=== PATIENT | female | born 1945 | race Caucasian/White ===

== ENCOUNTER 2017-06-05 09:21 | Inpatient (IN) | payer MEDICARE, BC ==
[2017-06-05] VITALS (8 sets, daily range): BP systolic 143–174; BP diastolic 69–76; PULSE 98–121; RESP 18–24; TEMP 98.6–101.8; O2SAT 91–99
[~2017-06-05] VITALS: Ht 162.6 cm; Wt 90.6 kg
[~2017-06-05 09:21] MED LIST: ASPI-516 CHEW; CENTTAB PO; CIPR-9 PO; CLAR5TAB PO; DEXA4TAB PO; LEVE500 PO; OXYB5TAB8 PO; PERC5TAB12 PO; SYMB80AE INH; ZOLO50TA PO
--- NOTE | 2017-06-05 09:44 | PD ---
HPI Chief Complaint: Cold / Flu Symptoms Time Seen by Provider: 09:31 Travel History International Travel<30 days: No Contact w/Intl Traveler<30days: No Traveled to known affect area: No History of Present Illness HPI The patient is a 71-year-old female who presents to the emergency department via EMS for fever and altered mental status. According to EMS the patient's has been sick at home for last 5 days, the patient developed symptoms 2-3 days ago with fever. The patient apparently was trying to get up off of the toilet earlier today and had a near syncopal episode. Upon arrival the patient is a somewhat poor historian, is able to answer questions, but is only alert and oriented 2 out of 5. The patient was noted to be tachycardic and febrile upon presentation. The patient denies any headache, chest pain, shortness breath, cough, nausea, vomiting, diarrhea, abdominal pain, or dysuria. However, nursing staff stated the patient was coughing upon arrival. PFSH Past Medical History Asthma: No Autoimmune Disease: No Blood Disorders: No Depression: Yes Cancer: Yes (R LUNG ) Cardiovascular Problems: No COPD: No Cerebrovascular Accident: Yes (TIA 09/16- LEFT SIDED WEAKNESS) Diabetes: No Diminished Hearing: No Endocrine: No GERD: Yes Genitourinary: No Hepatitis: No Immune Disorder: No Implanted Vascular Access Dvce: Yes Musculoskeletal: Yes Neurologic: Yes (BRAIN ANEURYSM) Psychiatric: Yes (DENIES) Reproductive: No Respiratory: Yes (SMOKER X 50 YEARS) Immunizations Current: Yes Radiation Therapy: Yes Seizures: Yes Sleep Apnea: No Thyroid Disease: No Tetanus Vaccination: Unknown Influenza Vaccination: No PNEUMOCCOCAL Vaccine (Year): 2 ?: Not Menopausal: Yes : 2 Para: 3 Past Surgical History Body Medical Devices: 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 Eye Surgery: Yes (BILAT CATARACT REMOVALS WITH LENS IMPLANTS) Neurologic Surgery: Yes (BRAIN BLEED (SHUNT)) Other Surgery: Yes (biopsy lung) Social History Alcohol Use: No Tobacco Use: No (QUIT,BUT SMOKED FOR 50 YEARS) Substance Use: No Allergies-Medications (Allergen,Severity, Reaction): Coded Allergies: Sulfa (Sulfonamide Antibiotics) (Verified Allergy, Severe, rash, 06/05/17) adhesive (Verified Allergy, Severe, rash, 06/05/17) cephalexin (Verified Allergy, Severe, rash, 06/05/17) diclofenac (Verified Allergy, Severe, rash, 06/05/17) erythromycin base (Verified Allergy, Severe, rash, 06/05/17) ibuprofen (Verified Allergy, Severe, rash, 06/05/17) naproxen (Verified Allergy, Severe, rash, 06/05/17) neomycin (Verified Allergy, Severe, rash, 06/05/17) rofecoxib (Verified Allergy, Severe, rash, 06/05/17) Reported Meds & Prescriptions Reported Meds & Active Scripts Active Reported Centrum (Multiple Vitamins W/ Minerals) 1 Chew 1 Tab PO DAILY Benadryl Allergy (Diphenhydramine HCl) 25 Mg Cap 25 Tab PO BID Zoloft (Sertraline HCl) 50 Mg Tab 50 Mg PO DAILY Ditropan (Oxybutynin Chloride) 5 Mg Tab 5 Mg PO Q12HR Keppra (Levetiracetam) 500 Mg Tab 500 Mg PO BID Symbicort Inh (Budesonide/Formoterol Fumarate) 80-4.5 Mcg/Act Aero 1 Puff INH Q12HR Aspirin 81 Mg Chew 81 Mg CHEW DAILY Review of Systems Except as stated in HPI: all other systems reviewed are Neg General / Constitutional: Positive: Fever HENT: No: Lightheadedness Cardiovascular: No: Chest Pain or Discomfort Respiratory: Positive: Cough (patient denies, however, nursing staff states the patient was coughing), No: Shortness of Breath Gastrointestinal: No: Nausea, Vomiting, Diarrhea, Abdominal Pain Genitourinary: No: Dysuria Neurologic: Positive: Change in Mentation (patient is normally alert and oriented according to EMS) Physical Exam Narrative GENERAL: Awake, somewhat lethargic 71-year-old female who appears her stated age. SKIN: Focused skin assessment warm/dry. HEAD: Atraumatic. Normocephalic. EYES: Pupils equal and round. No injection or drainage. ENT: No nasal bleeding or discharge. Slightly dry mucous membranes. NECK: Trachea midline. No JVD. CARDIOVASCULAR: Regular, tachycardic with a heart rate of 120. RESPIRATORY: No accessory muscle use. Late wheeze in the lower lobes bilaterally with rhonchi in the right base. GASTROINTESTINAL: Abdomen soft, obese, no tenderness. No guarding or rigidity. Back: Well-healed midline lumbar scar. No sacral decubitus ulcer noted. MUSCULOSKELETAL: No obvious deformities. No clubbing. No cyanosis. No edema. NEUROLOGICAL: Awake, lethargic. Oriented to out of 5. Follows commands. PSYCHIATRIC: Appropriate mood and affect; insight and judgment normal. Data Data Last Documented VS Vital Signs Date Time Temp Pulse Resp B/P (MAP) Pulse Ox O2 Delivery O2 Flow Rate FiO2 06/05/17 11:04 99.2 112 20 152/72 (98) 98 Nasal Cannula 2.00 Orders Orders Sepsis Workup Initiated (06/05/17 ) Electrocardiogram (06/05/17 09:37) Complete Blood Count With Diff (06/05/17 09:37) Comprehensive Metabolic Panel (06/05/17 09:37) Lactic Acid Sepsis Protocol (06/05/17 09:37) Magnesium (Mg) (06/05/17 09:37) Ckmb (Isoenzyme) Profile (06/05/17 09:37) Troponin I (06/05/17 09:37) Urinalysis - C+S If Indicated (06/05/17 09:37) Influenzae A/B Antigen (06/05/17 09:37) Blood Culture (06/05/17 09:37) Chest, Single Ap (06/05/17 09:37) Blood Gas Venous (Vbg) (06/05/17 09:37) Blood Glucose (06/05/17 09:37) Ecg Monitoring (06/05/17 09:37) Iv Access Insert/Monitor (06/05/17 09:37) Oximetry (06/05/17 09:37) Oxygen Administration (06/05/17 09:37) Acetaminophen (Tylenol) (06/05/17 09:45) Sodium Chlor 0.9% 1000 Ml Inj (Ns 1000 M (06/05/17 09:45) Urine Culture (06/05/17 09:45) Ciprofloxacin 400 Mg Premix (Cipro 400 M (06/05/17 11:00) Sodium Chlor 0.9% 1000 Ml Inj (Ns 1000 M (06/05/17 11:00) Admit Order (Ed Use Only) (06/05/17 11:44) Labs Laboratory Tests Test 06/05/17 09:45 06/05/17 10:14 White Blood Count 8.7 TH/MM3 Red Blood Count 4.36 MIL/MM3 Hemoglobin 11.4 GM/DL Hematocrit 35.4 % Mean Corpuscular Volume 81.2 FL Mean Corpuscular Hemoglobin 26.2 PG Mean Corpuscular Hemoglobin Concent 32.3 % Red Cell Distribution Width 16.5 % Platelet Count 265 TH/MM3 Mean Platelet Volume 8.1 FL Neutrophils (%) (Auto) 81.5 % Lymphocytes (%) (Auto) 5.7 % Monocytes (%) (Auto) 9.0 % Eosinophils (%) (Auto) 2.8 % Basophils (%) (Auto) 1.0 % Neutrophils # (Auto) 7.1 TH/MM3 Lymphocytes # (Auto) 0.5 TH/MM3 Monocytes # (Auto) 0.8 TH/MM3 Eosinophils # (Auto) 0.2 TH/MM3 Basophils # (Auto) 0.1 TH/MM3 CBC Comment DIFF FINAL Differential Comment Urine Color YELLOW Urine Turbidity HAZY Urine pH 7.5 Urine Specific [place] 1.017 Urine Protein 30 mg/dL Urine Glucose (UA) NEG mg/dL Urine Ketones 10 mg/dL Urine Occult Blood TRACE Urine Nitrite POS Urine Bilirubin NEG Urine Urobilinogen LESS THAN 2.0 MG/DL Urine Leukocyte Esterase MOD Urine RBC 6 /hpf Urine WBC 19 /hpf Urine Transitional Epithelial Cells <1 /hpf Urine Bacteria MANY /hpf Urine Mucus FEW /lpf Microscopic Urinalysis Comment CATH-CULTURE IND Blood Urea Nitrogen 13 MG/DL Creatinine 0.89 MG/DL Random Glucose 117 MG/DL Total Protein 8.1 GM/DL Albumin 3.6 GM/DL Calcium Level 7.9 MG/DL Magnesium Level 2.0 MG/DL Alkaline Phosphatase 112 U/L Aspartate Amino Transf (AST/SGOT) 23 U/L Alanine Aminotransferase (ALT/SGPT) 25 U/L Total Bilirubin 0.2 MG/DL Sodium Level 138 MEQ/L Potassium Level 4.0 MEQ/L Chloride Level 104 MEQ/L Carbon Dioxide Level 26.1 MEQ/L Anion Gap 8 MEQ/L Estimat Glomerular Filtration Rate 62 ML/MIN Lactic Acid Level 1.2 mmol/L Total Creatine Kinase 66 U/L Troponin I LESS THAN 0.02 NG/ML Blood Gas Puncture Site LAC Blood Gas Patient Temperature 98.6 Venous Blood pH 7.40 Venous Blood Partial Pressure CO2 41 mmHg Venous Blood Partial Pressure O2 50 mmHg Venous Blood HCO3 25 mmol/L Venous Blood Oxygen Saturation 83 % Venous Blood Oxygen Content 12.6 Vol % Venous Blood Base Excess 0.6 mmol/L Oxygen Delivery Device NASAL CANNULA Blood Gas Liter Flow 3 L/M MDM Medical Decision Making Medical Screen Exam Complete: Yes Emergency Medical Condition: Yes Medical Record Reviewed: Yes Interpretation(s) EKG reveals sinus tachycardia with a heart rate of 120. RSR prime in V1. Last Impressions Chest X-Ray 06/05/17 0937 Signed Impressions: Service Date/Time: Monday, June 05, 2017 09:55 - CONCLUSION: Negative for acute process. Brandt Carrera MD FACR Laboratory Tests Test 06/05/17 09:45 06/05/17 10:14 White Blood Count 8.7 TH/MM3 Red Blood Count 4.36 MIL/MM3 Hemoglobin 11.4 GM/DL Hematocrit 35.4 % Mean Corpuscular Volume 81.2 FL Mean Corpuscular Hemoglobin 26.2 PG Mean Corpuscular Hemoglobin Concent 32.3 % Red Cell Distribution Width 16.5 % Platelet Count 265 TH/MM3 Mean Platelet Volume 8.1 FL Neutrophils (%) (Auto) 81.5 % Lymphocytes (%) (Auto) 5.7 % Monocytes (%) (Auto) 9.0 % Eosinophils (%) (Auto) 2.8 % Basophils (%) (Auto) 1.0 % Neutrophils # (Auto) 7.1 TH/MM3 Lymphocytes # (Auto) 0.5 TH/MM3 Monocytes # (Auto) 0.8 TH/MM3 Eosinophils # (Auto) 0.2 TH/MM3 Basophils # (Auto) 0.1 TH/MM3 CBC Comment DIFF FINAL Differential Comment Urine Color YELLOW Urine Turbidity HAZY Urine pH 7.5 Urine Specific [place] 1.017 Urine Protein 30 mg/dL Urine Glucose (UA) NEG mg/dL Urine Ketones 10 mg/dL Urine Occult Blood TRACE Urine Nitrite POS Urine Bilirubin NEG Urine Urobilinogen LESS THAN 2.0 MG/DL Urine Leukocyte Esterase MOD Urine RBC 6 /hpf Urine WBC 19 /hpf Urine Transitional Epithelial Cells <1 /hpf Urine Bacteria MANY /hpf Urine Mucus FEW /lpf Microscopic Urinalysis Comment CATH-CULTURE IND Blood Urea Nitrogen 13 MG/DL Creatinine 0.89 MG/DL Random Glucose 117 MG/DL Total Protein 8.1 GM/DL Albumin 3.6 GM/DL Calcium Level 7.9 MG/DL Magnesium Level 2.0 MG/DL Alkaline Phosphatase 112 U/L Aspartate Amino Transf (AST/SGOT) 23 U/L Alanine Aminotransferase (ALT/SGPT) 25 U/L Total Bilirubin 0.2 MG/DL Sodium Level 138 MEQ/L Potassium Level 4.0 MEQ/L Chloride Level 104 MEQ/L Carbon Dioxide Level 26.1 MEQ/L Anion Gap 8 MEQ/L Estimat Glomerular Filtration Rate 62 ML/MIN Lactic Acid Level 1.2 mmol/L Total Creatine Kinase 66 U/L Troponin I LESS THAN 0.02 NG/ML Blood Gas Puncture Site LAC Blood Gas Patient Temperature 98.6 Venous Blood pH 7.40 Venous Blood Partial Pressure CO2 41 mmHg Venous Blood Partial Pressure O2 50 mmHg Venous Blood HCO3 25 mmol/L Venous Blood Oxygen Saturation 83 % Venous Blood Oxygen Content 12.6 Vol % Venous Blood Base Excess 0.6 mmol/L Oxygen Delivery Device NASAL CANNULA Blood Gas Liter Flow 3 L/M Differential Diagnosis Differential diagnosis includes pneumonia, influenza, sepsis, UTI, pyelonephritis, viral syndrome, dehydration, electrolyte abnormality. Narrative Course IV was established, labs are drawn and sent, and the patient was placed on cardiac telemetry monitoring and continuous pulse oximetry monitoring. EKG was ordered and interpreted. Catheter UA was sent to lab. Lactic acid and blood culture were sent to lab. The patient was administered 1 L of IV fluids and placed on oxygen via nasal cannula for initial O2 sat of 90% on room air. Chest x-rays unremarkable. White count is normal. UA is positive for nitrites , leukocyte esterase, and WBCs consistent with UTI and secondary sepsis with tachycardia and fever. The patient is allergic to cephalexin and sulfa, therefore, was administered Cipro intravenously. I had a discussion with the son and at bedside, the patient is normally alert and oriented and able to get around the house. However, the was unable to get the patient out of the bed and into the bathroom earlier today secondary to her weakness and confusion. The patient has delirium secondary to sepsis and underlying UTI/ pyelonephritis. Therefore, the patient will be admitted to the medical service. Sepsis Criteria SIRS Criteria (2 or more): Temp > 100.9 or < 96.8, Heart rate over 90 Sepsis Criteria (SIRS+source): Infect source susp/known Criteria Outcome: Meets sepsis criteria Physician Communication Physician Communication [facility] were paged for admission. I discussed the patient with Dr. Arellano who agrees with admission. Diagnosis Primary Impression: Sepsis Qualified Codes: A41.9 - Sepsis, unspecified organism Additional Impressions: Pyelonephritis Delirium Admitting Information Admitting Physician Requests: Admit Condition: Stable Keven Milan MD Jun 05, 2017 09:44
[2017-06-05] MEDS ORDERED: ACETAMINOPHEN 325 MG TAB PO ONE (09:45)
[2017-06-05] MEDS ORDERED: SODIUM CHLOR 0.9% 1000 ML INJ 1,000 ML IV ONE ×2 (09:45→11:00)
--- NOTE | 2017-06-05 10:15 | RADRPT ---
EXAM DATE/TIME: 06/05/2017 09:55 [facility] COMPARISON: CHEST SINGLE AP, May 11, 2016, 1:23. INDICATIONS : Fever MEDICAL HISTORY : aneurysm 8 years ago, spot on her lung. history given by son SURGICAL HISTORY : None. ENCOUNTER: Initial ACUITY: 2 days PAIN SCORE: Non-responsive. LOCATION: Bilateral chest FINDINGS: Lungs are clear. The heart and pulmonary vascularity are normal.. CERTIFIED PROSTHETIST VICE PRESIDENT shunt is seen on the left. CONCLUSION: Negative for acute process. Brandt Carrera MD FACR on June 05, 2017 at 10:06 Board Certified Radiologist. This report was verified electronically.
[2017-06-05] MEDS ORDERED: BENA25CA4 PO (10:16)
[2017-06-05] MEDS ORDERED: CENTCHW4 PO (10:16)
[2017-06-05 10:39] LABS: BACTERIA, URINE MANY /hpf; BILIRUBIN, URINE NEG (NEG); BLOOD, URINE TRACE (NEG); GLUCOSE,URINE NEG (NEG); KETONE, URINE 10 mg/dL (NEG); MUCUS URINE FEW /lpf (OCC); NITRITE,URINE POS (NEG); PH, URINE 7.5 (5.0-8.5); TRANSITIONAL EPI CELLS, URINE <1 /hpf; URINE COLOR YELLOW (YELLW/STRAW); URINE LEUKOCYTE ESTERASE MOD (NEG)
[2017-06-05 10:41] LABS: AUTOMATED NEUTROPHIL # 7.1 TH/MM3 (1.8-7.7); BASOPHIL # 0.1 TH/MM3 (0-0.2); EOSINOPHIL # 0.2 TH/MM3 (0-0.4); EOSINOPHIL % 2.8 % (0.0-4.0); HEMATOCRIT 35.4 % (35.0-46.0); HEMOGLOBIN 11.4 GM/DL (11.6-15.3); LYMPH % 5.7 % (9.0-44.0); LYMPHOCYTE # 0.5 TH/MM3 (1.0-4.8); MEAN CELL VOLUME 81.2 FL (80.0-100.0); MEAN CORPUSCULAR HEMOGLOBIN 26.2 PG (27.0-34.0); MEAN CORPUSCULAR HGB CONC 32.3 % (32.0-36.0); MEAN PLATELET VOLUME 8.1 FL (7.0-11.0); MONOCYTE # 0.8 TH/MM3 (0-0.9); NEUT % 81.5 % (16.0-70.0); PLATELET COUNT 265 TH/MM3 (150-450); RED BLOOD COUNT 4.36 MIL/MM3 (4.00-5.30); RED CELL DISTRIBUTION WIDTH 16.5 % (11.6-17.2); WHITE BLOOD COUNT 8.7 TH/MM3 (4.0-11.0)
[2017-06-05 10:57] LABS: ALBUMIN 3.6 GM/DL (3.4-5.0); ALT (GPT) 25 U/L (10-53); AST (GOT) 23 U/L (15-37); BICARBONATE 26.1 MEQ/L (21.0-32.0); BLOOD UREA NITROGEN 13 MG/DL (7-18); CALCIUM 7.9 MG/DL (8.5-10.1); CHLORIDE 104 MEQ/L (98-107); CREATININE 0.89 MG/DL (0.50-1.00); GLOMERULAR FILTRATION RATE 62 ML/MIN (>89); GLUCOSE,RANDOM 117 MG/DL (74-106); SODIUM (NA) 138 MEQ/L (136-145)
[2017-06-05] MEDS ORDERED: CIPROFLOXACIN 400 MG PREMIX 200 ML IV ONE (11:00)
[2017-06-05 11:02] LABS: ALKALINE PHOSPHATASE 112 U/L (45-117); TOTAL BILIRUBIN ADULT 0.2 MG/DL (0.2-1.0); TOTAL PROTEIN 8.1 GM/DL (6.4-8.2); TROPONIN I LESS THAN 0.02 NG/ML (0.02-0.05)
--- NOTE | 2017-06-05 11:51 | EKG ---
Date Performed: 06/05/2017 Time Performed: 09:41:10 PTAGE: 71 years EKG: SINUS TACHYCARDIA POSSIBLE RIGHT VENTRICULAR CONDUCTION DELAY ABNORMAL RHYTHM ECG PREVIOUS TRACING : 05/11/2016 01.22 Since the prior tracing, there has been no significant alvarez DOCTOR: Carolin Zimmer Interpretating Date/Time 06/05/2017 11:50:42
[2017-06-05] MEDS: RESP: ALBUTEROL 2.5 MG/IPRATROPIUM 0.5 MG NEB (SCH) NEB ×2 (16:45→21:28)
[2017-06-05] MEDS ORDERED: RESP: ALBUTEROL 2.5 MG/IPRATROPIUM 0.5 MG NEB (PRN) NEB (16:45)
--- NOTE | 2017-06-05 16:58 | HHI.HP ---
[facility] Chandrakant Huang MD Admission Diagnosis sepsis, pyelonephritis, delirium Diagnoses: Chief Complaint: fever Travel History International Travel<30 Days: No Contact w/Intl Traveler <30 Da: No Traveled to Known Affected Are: No Sepsis Criteria SIRS Criteria (2 or more): Temp > 100.9 or < 96.8, Heart rate over 90, RR > 20 or PaCO2 < 32 Sepsis Criteria (SIRS+source): Infect source susp/known Criteria Outcome: Meets sepsis criteria History of Present Illness 71-year-old female with history of intracranial hemorrhage secondary to brain aneurysm sometime in and per son at bedside patient is basically a total assist with every ADLs, daily meals and bathing etc, Primary press operator automatic is her who is not at bedside patent. Baseline she ambulates with 2 person assist. Her who is the primary caregiver scheduled check her diarrhea per and change it regularly. She was brought in by her as patient this morning and was very lethargic Patient here was it had a temperature of 102.8 tachycardic and patient was admitted for further evaluation and management. Patient is now more awake and alert A urinalysis was abstained obtained and showed pyuria. Chest x-ray negative. Flu antigen test negative Review of Systems ROS Limitations: Poor Historian Eyes: DENIES: Blurred vision, Diplopia, Eye inflammation, Eye pain, Vision loss , Photosensitivity, Double Vision Hematologic/lymphatic: DENIES: Bruising, Lymphadenopathy Immunologic/allergic: DENIES: Eczema, Urticaria Neurologic: COMPLAINS OF: Seizures Past Family Social History Past Medical History Status post CVA intracranial hemorrhage secondary to brain aneurysm in 2011 status post clipping/cranioplasty Seizure disorder COPD Occasional urinary incontinence History of non-small cell carcinoma in 2014 status post radiation therapy Past Surgical History Brain aneurysm clipping in 2011 Reported Medications Aspirin Keppra Zoloft Symbicort Ditropan Multivitamin Allergies: Coded Allergies: Sulfa (Sulfonamide Antibiotics) (Verified Allergy, Severe, rash, 06/05/17) adhesive (Verified Allergy, Severe, rash, 06/05/17) cephalexin (Verified Allergy, Severe, rash, 06/05/17) diclofenac (Verified Allergy, Severe, rash, 06/05/17) erythromycin base (Verified Allergy, Severe, rash, 06/05/17) ibuprofen (Verified Allergy, Severe, rash, 06/05/17) naproxen (Verified Allergy, Severe, rash, 06/05/17) neomycin (Verified Allergy, Severe, rash, 06/05/17) rofecoxib (Verified Allergy, Severe, rash, 06/05/17) Family History Noncontributory Social History Patient was a heavy smoker quit 8 years ago No history of alcohol or substance abuse Physical Exam Vital Signs Vital Signs Date Time Temp Pulse Resp B/P (MAP) Pulse Ox O2 Delivery O2 Flow Rate FiO2 06/05/17 15:44 98.8 98 18 149/69 (95) 99 06/05/17 12:35 98.6 106 18 153/76 (101) 98 Nasal Cannula 2.00 06/05/17 11:04 99.2 112 20 152/72 (98) 98 Nasal Cannula 2.00 06/05/17 10:06 Nasal Cannula 2.00 06/05/17 09:40 20 98 Nasal Cannula 2.00 06/05/17 09:27 Room Air 06/05/17 09:24 101.8 121 24 143/75 (97) 91 Physical Exam GENERAL: Awake alert oriented to person and place and time, voice slightly hoarse SKIN: No rashes, ecchymoses or lesions. Cool and dry. HEAD: Atraumatic. Normocephalic. No temporal or scalp tenderness. EYES: Pupils equal round and reactive. Extraocular motions intact. No scleral icterus. No injection or drainage. ENT: Nose without bleeding, . Throat without erythema, tonsillar hypertrophy or exudate. Uvula midline. Airway patent. NECK: Trachea midline. No JVD or lymphadenopathy. Supple, nontender, no meningeal signs. CARDIOVASCULAR: Regular rate and rhythm without murmurs, gallops, or rubs. RESPIRATORY: With few expiratory wheezes occasional rhonchi no Rales GASTROINTESTINAL: Abdomen soft, non-tender, nondistended. No guarding. MUSCULOSKELETAL: Extremities without clubbing, cyanosis, or edema. No joint tenderness, effusion, or edema noted. No calf tenderness. Negative Homans sign bilaterally. NEUROLOGICAL: Awake and alert. Cranial nerves II through XII intact. Motor and sensory grossly within normal limits. Five out of 5 muscle strength -moves all extremities equally grossly Laboratory Laboratory Tests Test 06/05/17 09:45 06/05/17 10:14 White Blood Count 8.7 Red Blood Count 4.36 Hemoglobin 11.4 Hematocrit 35.4 Mean Corpuscular Volume 81.2 Mean Corpuscular Hemoglobin 26.2 Mean Corpuscular Hemoglobin Concent 32.3 Red Cell Distribution Width 16.5 Platelet Count 265 Mean Platelet Volume 8.1 Neutrophils (%) (Auto) 81.5 Lymphocytes (%) (Auto) 5.7 Monocytes (%) (Auto) 9.0 Eosinophils (%) (Auto) 2.8 Basophils (%) (Auto) 1.0 Neutrophils # (Auto) 7.1 Lymphocytes # (Auto) 0.5 Monocytes # (Auto) 0.8 Eosinophils # (Auto) 0.2 Basophils # (Auto) 0.1 CBC Comment DIFF FINAL Differential Comment Urine Color YELLOW Urine Turbidity HAZY Urine pH 7.5 Urine Specific [place] 1.017 Urine Protein 30 Urine Glucose (UA) NEG Urine Ketones 10 Urine Occult Blood TRACE Urine Nitrite POS Urine Bilirubin NEG Urine Urobilinogen LESS THAN 2.0 Urine Leukocyte Esterase MOD Urine RBC 6 Urine WBC 19 Urine Transitional Epithelial Cells <1 Urine Bacteria MANY Urine Mucus FEW Microscopic Urinalysis Comment CATH-CULTURE IND Blood Urea Nitrogen 13 Creatinine 0.89 Random Glucose 117 Total Protein 8.1 Albumin 3.6 Calcium Level 7.9 Magnesium Level 2.0 Alkaline Phosphatase 112 Aspartate Amino Transf (AST/SGOT) 23 Alanine Aminotransferase (ALT/SGPT) 25 Total Bilirubin 0.2 Sodium Level 138 Potassium Level 4.0 Chloride Level 104 Carbon Dioxide Level 26.1 Anion Gap 8 Estimat Glomerular Filtration Rate 62 Lactic Acid Level 1.2 Total Creatine Kinase 66 Troponin I LESS THAN 0.02 Blood Gas Puncture Site LAC Blood Gas Patient Temperature 98.6 Venous Blood pH 7.40 Venous Blood Partial Pressure CO2 41 Venous Blood Partial Pressure O2 50 Venous Blood HCO3 25 Venous Blood Oxygen Saturation 83 Venous Blood Oxygen Content 12.6 Venous Blood Base Excess 0.6 Oxygen Delivery Device NASAL CANNULA Blood Gas Liter Flow 3 Date/Time Source Procedure Growth Status 06/05/17 09:45 Blood Peripheral Aerobic Blood Culture Pending Received 06/05/17 09:45 Blood Peripheral Anaerobic Blood Culture Pending Received 06/05/17 09:45 Nasal Aspirate Influenza Types A,B Antigen (DASHA) - Final NEGATIVE FOR FLU A AND B ANTIGEN.... Complete 06/05/17 09:45 Urine Catheterized Urine Urine Culture Pending Received Result Diagram: 06/05/1745 06/05/1745 Imaging Last Impressions Chest X-Ray 06/05/17936 Signed Impressions: Service Date/Time: Monday, June 05, 2017 09:55 - CONCLUSION: Negative for acute process. Brandt Carrera MD FACR Caprini VTE Risk Assessment Caprini VTE Risk Assessment: Mod/High Risk (score >= 2) Caprini Risk Assessment Model Point Value = 1 Point Value = 2 Point Value = 3 Point Value = 5 Age 41-60 Minor surgery BMI > 25 kg/m2 Swollen legs Varicose veins or History of unexplained or recurrent spontaneous Oral contraceptives or hormone replacement Sepsis (< 1 month) Serious lung disease, including pneumonia (< 1 month) Abnormal pulmonary function Acute myocardial infarction Congestive heart failure (< 1 month) History of inflammatory bowel disease Medical patient at bed rest Age 61-74 Arthroscopic surgery Major open surgery (> 45 min) Laparoscopic surgery (> 45 min) Malignancy Confined to bed (> 72 hours) Immobilizing plaster cast Central venous access Age >= 75 History of VTE Family history of VTE Factor V Leiden Prothrombin [id number] Lupus anticoagulant Anticardiolipin antibodies Elevated serum homocysteine Heparin-induced thrombocytopenia Other congenital or acquired thrombophilia Stroke (< 1 month) Elective arthroplasty Hip, pelvis, or leg fracture Acute spinal cord injury (< 1 month) Prophylaxis Regimen Total Risk Factor Score Risk Level Prophylaxis Regimen 0-1 Low Early ambulation 2 Moderate Order ONE of the following: *Sequential Compression Device (SCD) *Heparin 5000 units SQ BID 3-4 Higher Order ONE of the following medications: *Heparin 5000 units SQ TID *Enoxaparin/Lovenox 40 mg SQ daily (WT < 150 kg, CrCl > 30 mL/min) *Enoxaparin/Lovenox 30 mg SQ daily (WT < 150 kg, CrCl > 10-29 mL/min) *Enoxaparin/Lovenox 30 mg SQ BID (WT < 150 kg, CrCl > 30 mL/min) AND/OR *Sequential Compression Device (SCD) 5 or more Highest Order ONE of the following medications: *Heparin 5000 units SQ TID (Preferred with Epidurals) *Enoxaparin/Lovenox 40 mg SQ daily (WT < 150 kg, CrCl > 30 mL/min) *Enoxaparin/Lovenox 30 mg SQ daily (WT < 150 kg, CrCl > 10-29 mL/min) *Enoxaparin/Lovenox 30 mg SQ BID (WT < 150 kg, CrCl > 30 mL/min) AND *Sequential Compression Device (SCD) Assessment and Plan Assessment and Plan 71-year-old female presenting with change in mental status fever with pyuria tachycardic on presentation Sepsis criteria secondary to UTI Ciprofloxacin 400 mg IV q 12 Follow blood cultures and urine cultures Start patient on gentle hydration. Continue on her Ditropan COPD in acute exacerbation Remote history of lung cancer status post radiation therapy Start patient on IV Solu-Medrol duoneb every 6 and every 2 when necessary History of seizure disorder/remote history of intracranial hemorrhage secondary to brain aneurysm -baseline requires assist with self care Continue on Keppra medication PPI for GI prophylaxis Lovenox for DVT prophylaxis Discussed with son. CODE STATUS per son will discuss with her who is the primary caregiver Physician Certification 2 Midnight Certification Type: Admission for Inpatient Services Order for Inpatient Services The services are ordered in accordance with Medicare regulations or non- Medicare payer requirements, as applicable. In the case of services not specified as inpatient-only, they are appropriately provided as inpatient services in accordance with the 2-midnight benchmark. Estimated LOS (days): 3 days is the estimated time the patient will need to remain in the hospital, assuming treatment plan goals are met and no additional complications. Post-Hospital Plan: Not yet determined Ana Arellano MD Jun 05, 2017 16:58
[2017-06-05] MEDS: PANTOPRAZOLE SOD 40 MG DELAYED RELEASE TAB PO SCH (17:35)
[2017-06-05] MEDS: methylPREDNISolone SOD SUCC 125 MG/2 ML VIAL IV PUSH SCH (17:35)
[2017-06-05] MEDS: ENOXAPARIN SODIUM 40 MG/0.4 ML SYRINGE SQ SCH (17:35)
[2017-06-05] MEDS ORDERED: POTASSIUM CHLORIDE INJ 10 MEQ in DEXT 5%-NACL 0.9% 1000 ML INJ 1,000 ML IV SCH (18:00)
[2017-06-05] MEDS: levETIRAcetam 500 MG TAB PO SCH (22:13)
[2017-06-05] MEDS: CIPROFLOXACIN 400 MG PREMIX 200 ML IV SCH (22:13)
[2017-06-05] MEDS: OXYBUTYNIN CHLORIDE 5 MG TAB PO SCH (22:13)
[2017-06-06] VITALS (7 sets, daily range): BP systolic 119–159; BP diastolic 56–71; PULSE 77–89; RESP 18; TEMP 97.4–98.2; O2SAT 94–98
[2017-06-06] MEDS ORDERED: ONDANSETRON HCL 4 MG/2 ML VIAL IV PUSH PRN
[2017-06-06] MEDS: BUDESONIDE-FORMOTEROL 80/4.5 MCG INHALER INH SCH ×3 (00:32→22:14)
[2017-06-06] MEDS: methylPREDNISolone SOD SUCC 125 MG/2 ML VIAL IV PUSH SCH ×2 (00:33→09:18)
[2017-06-06] MEDS: RESP: ALBUTEROL 2.5 MG/IPRATROPIUM 0.5 MG NEB (SCH) NEB ×4 (03:32→21:36)
[2017-06-06] MEDS: CIPROFLOXACIN 400 MG PREMIX 200 ML IV SCH ×2 (09:15→23:06)
[2017-06-06] MEDS: ASPIRIN 81 MG CHEW TAB CHEW SCH (09:18)
[2017-06-06] MEDS: MULTIVITAMINS/MINERALS THERAPEUTIC TAB PO SCH (09:19)
[2017-06-06] MEDS: OXYBUTYNIN CHLORIDE 5 MG TAB PO SCH ×2 (09:19→21:25)
[2017-06-06] MEDS: levETIRAcetam 500 MG TAB PO SCH ×2 (09:19→21:25)
[2017-06-06] MEDS: PANTOPRAZOLE SOD 40 MG DELAYED RELEASE TAB PO SCH (09:19)
[2017-06-06] MEDS: SERTRALINE HCL 50 MG TAB PO SCH (09:19)
--- NOTE | 2017-06-06 11:21 | HHI.PR ---
Subjective Remarks seen with family- son and patient feeling 100% better good po now states also he has GERD and ran out of PPI I assured him that she was started on Protonix Objective Vitals Vital Signs Date Time Temp Pulse Resp B/P (MAP) Pulse Ox O2 Delivery O2 Flow Rate FiO2 06/06/17 09:42 98 Nasal Cannula 2.50 06/06/17 08:31 97.4 77 18 119/56 (77) 94 06/06/17 05:43 98.0 85 18 142/63 (89) 96 06/06/17 00:09 98.1 89 18 154/71 (98) 97 06/05/17 20:00 100.3 113 18 153/74 (100) 94 06/05/17 17:26 96 06/05/17 16:00 98.9 107 18 174/73 (106) 97 06/05/17 15:44 98.8 98 18 149/69 (95) 99 06/05/17 12:35 98.6 106 18 153/76 (101) 98 Nasal Cannula 2.00 I/O 06/05/17 06/05/17 06/05/17 06/06/17 06/06/17 06/06/17 07:00 15:00 23:00 07:00 15:00 23:00 Intake Total 2200 ml 200 ml Balance 2200 ml 200 ml Intake IV Total 2200 ml 200 ml # Voids 1 1 Result Diagram: 06/05/17 0945 06/05/17 0945 Imaging Last Impressions Chest X-Ray 06/05/17 0937 Signed Impressions: Service Date/Time: Monday, June 05, 2017 09:55 - CONCLUSION: Negative for acute process. Brandt Carrera MD FACR Objective Remarks awkae and alert, oriented x 3 speech soft but clear anicteric regular rhythm HR- 88 no rales abdomen soft, good bowel sounds extremities no edema neuro exam- non focal A/P Assessment and Plan 71-year-old female presenting with change in mental status fever with pyuria tachycardic on presentation Sepsis criteria secondary to UTI- clinically much better Ciprofloxacin 400 mg IV q 12 Follow blood cultures and urine cultures Continue on her Ditropan COPD in acute exacerbation - lungs exam improved Remote history of lung cancer status post radiation therapy change to po Prednisone duoneb every 6 and every 2 when necessary History of seizure disorder/remote history of intracranial hemorrhage secondary to brain aneurysm Continue on Keppra medication History of GERD- on Protonix PPI for GI prophylaxis Lovenox for DVT prophylaxis Discussed with son. CODE STATUS per son will discuss with her who is the primary caregiver if cultures back- hopefully DC today CM consult for home [facility] services Ana Arellano MD Jun 06, 2017 11:21
--- NOTE | 2017-06-06 11:37 | HHI.FF ---
Face to Face Verification Diagnosis: (1) UTI (urinary tract infection) (2) Sepsis Home Health Nursing Order: Medical education Signs/symptoms of disease process Nursing assessment with vital signs I have seen patient Cindy Lyons on 06/06/17. My clinical findings support the need for the requested home health care services because: Ltd mobility - disease progression Limited ability to care for self Need for psychosocial assistance Infection w/ risk of complications I certify that my clinical findings support that this patient is homebound because: Hx COPD- exertion dyspnea/weakness Ana Arellano MD Jun 06, 2017 11:37
[2017-06-06] MEDS: ENOXAPARIN SODIUM 40 MG/0.4 ML SYRINGE SQ SCH (17:51)
[2017-06-06] MEDS: predniSONE 20 MG TAB PO SCH (21:25)
[2017-06-07 01:00] VITALS: BP 144/63; PULSE 98; RESP 18; TEMP 97.8; O2SAT 99
[2017-06-07] MEDS: RESP: ALBUTEROL 2.5 MG/IPRATROPIUM 0.5 MG NEB (SCH) NEB ×2 (02:35→09:51)
[2017-06-07 02:43] VITALS: O2SAT 98
[2017-06-07 05:09] VITALS: BP 147/69; PULSE 95; RESP 20; TEMP 97.7; O2SAT 96
[2017-06-07 08:41] VITALS: BP 133/65; PULSE 87; RESP 17; TEMP 97.7; O2SAT 100
[2017-06-07] MEDS ORDERED: CIPROFLOXACIN 500 MG TAB PO SCH (09:00)
--- NOTE | 2017-06-07 09:05 | HHI.PR ---
Subjective Remarks patient awake and alert, interactive no complains seen with at bedside- who states patient is baseline total assists with ADL no CVA tenderness Objective Vitals Vital Signs Date Time Temp Pulse Resp B/P (MAP) Pulse Ox O2 Delivery O2 Flow Rate FiO2 06/07/17 08:41 97.7 87 17 133/65 (87) 100 06/07/17 05:09 97.7 95 20 147/69 (95) 96 06/07/17 02:43 98 Nasal Cannula 2.00 06/07/17 01:00 97.8 98 18 144/63 (90) 99 06/06/17 21:04 98.0 82 18 159/66 (97) 98 06/06/17 16:41 97.7 86 18 146/63 (90) 96 06/06/17 12:43 98.2 84 18 137/64 (88) 97 06/06/17 09:42 98 Nasal Cannula 2.50 I/O 06/06/17 06/06/17 06/06/17 06/07/17 06/07/17 06/07/17 07:00 15:00 23:00 07:00 15:00 23:00 Intake Total 200 ml 771 ml 480 ml 200 ml Balance 200 ml 771 ml 480 ml 200 ml Intake Oral 480 ml IV Total 200 ml 771 ml 200 ml # Voids 1 1 1 # Bowel Movements 3 1 Result Diagram: 06/05/17 0945 06/05/17 0945 Imaging Last Impressions Chest X-Ray 06/05/17 0937 Signed Impressions: Service Date/Time: Monday, June 05, 2017 09:55 - CONCLUSION: Negative for acute process. Brandt Carrera MD FACR Objective Remarks awake and alert, oriented x 3 speech soft but clear anicteric regular rhythm no rales abdomen soft, good bowel sounds, no CVA tendereness extremities no edema neuro exam- non focal A/P Assessment and Plan 71-year-old female presenting with change in mental status fever with pyuria tachycardic on presentation Sepsis criteria secondary to UTI- MS -improved back to baseline Ciprofloxacin 400 mg IV q 12 Follow blood cultures and urine cultures- I called Micro- growing K. Pneumonia- sensitive to Cipro will change to po for 5 more days Continue on her Ditropan OP ff up with PCP COPD in acute exacerbation - lungs exam improved Remote history of lung cancer status post radiation therapy change to po Prednisone duoneb every 6 and every 2 when necessary OP ff up with PCP History of seizure disorder/remote history of intracranial hemorrhage secondary to brain aneurysm Continue on Keppra medication History of GERD- on Protonix PPI for GI prophylaxis Lovenox for DVT prophylaxis Discussed with CODE STATUS per son will discuss with her who is the primary caregiver DC today CM consulted for home health care OP ff up with PCP Ana Arellano MD Jun 07, 2017 09:05
[2017-06-07] MEDS: levETIRAcetam 500 MG TAB PO SCH (09:08)
[2017-06-07] MEDS: SERTRALINE HCL 50 MG TAB PO SCH (09:08)
[2017-06-07] MEDS: OXYBUTYNIN CHLORIDE 5 MG TAB PO SCH (09:08)
[2017-06-07] MEDS: ASPIRIN 81 MG CHEW TAB CHEW SCH (09:08)
[2017-06-07] MEDS: predniSONE 20 MG TAB PO SCH (09:08)
[2017-06-07] MEDS: PANTOPRAZOLE SOD 40 MG DELAYED RELEASE TAB PO SCH (09:08)
[2017-06-07] MEDS: MULTIVITAMINS/MINERALS THERAPEUTIC TAB PO SCH (09:08)
[2017-06-07] MEDS: BUDESONIDE-FORMOTEROL 80/4.5 MCG INHALER INH SCH (09:09)
[2017-06-07] MEDS ORDERED: PRED20 PO (09:11)
[2017-06-07] MEDS ORDERED: PANT40TA3 PO ×2 (09:11→09:12)
[2017-06-07] MEDS ORDERED: CIPR-9 PO (09:11)
--- NOTE | 2017-06-07 09:15 | HHI.DS ---
Discharge Summary Admission Date Jun 05, 2017 at 11:45 Discharge Date: Jun 07, 2017 Admitting Diagnosis sepsis, pyelonephritis, delirium (1) Sespsis secondary to UTI Diagnosis: Principal (2) HAD Diagnosis: Secondary (3) SZ disorder Diagnosis: Secondary Procedures none Brief History - From Admission 71-year-old female with history of intracranial hemorrhage secondary to brain aneurysm sometime in and per son at bedside patient is basically a total assist with every ADLs, daily meals and bathing etc, Primary registered public surveyor is her who is not at bedside patent. Baseline she ambulates with 2 person assist. Her who is the primary caregiver scheduled check her diarrhea per and change it regularly. She was brought in by her as patient this morning and was very lethargic Patient here was it had a temperature of 102.8 tachycardic and patient was admitted for further evaluation and management. Patient is now more awake and alert A urinalysis was abstained obtained and showed pyuria. Chest x-ray negative. Flu antigen test negative CBC/BMP: 06/05/17 0945 06/05/17 0945 Significant Findings Laboratory Tests Test 06/05/17 09:45 06/05/17 10:14 Hemoglobin 11.4 GM/DL (11.6-15.3) Mean Corpuscular Hemoglobin 26.2 PG (27.0-34.0) Neutrophils (%) (Auto) 81.5 % (16.0-70.0) Lymphocytes (%) (Auto) 5.7 % (9.0-44.0) Monocytes (%) (Auto) 9.0 % (0.0-8.0) Lymphocytes # (Auto) 0.5 TH/MM3 (1.0-4.8) Urine Turbidity HAZY (CLEAR) Urine Protein 30 mg/dL (NEG-TRACE) Urine Ketones 10 mg/dL (NEG) Urine Occult Blood TRACE (NEG) Urine Nitrite POS (NEG) Urine Leukocyte Esterase MOD (NEG) Urine RBC 6 /hpf (0-3) Urine WBC 19 /hpf (0-5) Urine Bacteria MANY /hpf (NONE) Urine Mucus FEW /lpf (OCC) Random Glucose 117 MG/DL (74-106) Calcium Level 7.9 MG/DL (8.5-10.1) Estimat Glomerular Filtration Rate 62 ML/MIN (>89) Troponin I LESS THAN 0.02 NG/ML Venous Blood Partial Pressure CO2 41 mmHg (44-48) Venous Blood Partial Pressure O2 50 mmHg (35-40) Venous Blood Oxygen Saturation 83 % (70-76) Imaging Last Impressions Chest X-Ray 06/05/17 0937 Signed Impressions: Service Date/Time: Monday, June 05, 2017 09:55 - CONCLUSION: Negative for acute process. Brandt Carrera MD FACR PE at Discharge awake and alert, oriented x 3 speech soft but clear anicteric regular rhythm no rales abdomen soft, good bowel sounds extremities no edema neuro exam- non focal Pt update on day of discharge awake and alert, afebrile wanting to go home no complains of abdominal discomfort, nausea or vomiting Hospital Course 71-year-old female presenting with change in mental status fever with pyuria tachycardic on presentation Sepsis criteria secondary to UTI- MS -improved back to baseline Ciprofloxacin 400 mg IV q 12 Follow blood cultures- negative in 24 hours urine culture- growing gram negative - I called Micro- growing K. Pneumonia- sensitive to Cipro will change to po cipro for 5 more days Continue on her Ditropan OP ff up with PCP COPD in acute exacerbation - lungs exam improved Remote history of lung cancer status post radiation therapy change to po Prednisone duoneb every 6 and every 2 when necessary OP ff up with PCP History of seizure disorder/remote history of intracranial hemorrhage secondary to brain aneurysm Continue on Keppra medication History of GERD- on Protonix PPI for GI prophylaxis Lovenox for DVT prophylaxis Discussed with CODE STATUS per son will discuss with her who is the primary caregiver DC today CM consulted for home health care OP ff up with PCP Pt Condition on Discharge: Stable Discharge Disposition: Disch w/ Home Health Serv Discharge Time: <= 30 minutes Discharge Instructions DIET: Follow Instructions for: Heart Healthy Diet Speech Therapy-Diet Recommends: Regular Activities you can perform: Weight Bearing as Morgan, See Additionl Instruction Other Activity Instructions: total assist with ADL: per Follow up Referrals: PCP Follow-up - 1 Month with Naveen New Medications: Ciprofloxacin (Cipro) 500 Mg Tab 500 MG PO Q12HR for UTI for 5 Days, #10 TAB Pantoprazole (Pantoprazole) 40 Mg Tab 40 MG PO DAILY for GIprop for 5 Days, #5 TAB Prednisone (Prednisone) 20 Mg Tab 20 MG PO BID for HAD for 4 Days, #8 TAB Continued Medications: Aspirin (Aspirin) 81 Mg Chew 81 MG CHEW DAILY, TAB 0 Refills Budesonide-Formoterol Inh (Symbicort Inh) 80-4.5 Mcg/Act Aero 1 PUFF INH Q12HR for Asthma Management, #1 INHALER 0 Refills Levetiracetam (Keppra) 500 Mg Tab 500 MG PO BID for Control Seizures, #60 TAB 0 Refills Multiple Vitamins W/ Minerals (Centrum) 1 Chew 1 TAB PO DAILY for Nutritional Supplement, TAB 0 Refills Oxybutynin (Ditropan) 5 Mg Tab 5 MG PO Q12HR for Urinary Symptom Managemen, #60 TAB 0 Refills Sertraline (Zoloft) 50 Mg Tab 50 MG PO DAILY, #30 TAB 0 Refills Ana Arellano MD Jun 07, 2017 09:15
== END 2017-06-07 11:37 | disposition home health service (06) | DRG 872 ==
LOC: NEPC 09:21 → NEDA 11:45 → N05B 16:02
PROVIDERS: ADMIT Internal Medicine; ATTEND Internal Medicine
DX: A41.9 Sepsis, unspecified organism (principal); G40.909 Epilepsy, unspecified, not intractable, without status epilepticus; J44.1 Chronic obstructive pulmonary disease with (acute) exacerbation; N39.0 Urinary tract infection, site not specified; B96.1 Klebsiella pneumoniae [K. pneumoniae] as the cause of diseases classified elsewhere; I69.198 Other sequelae of nontraumatic intracerebral hemorrhage; R41.0 Disorientation, unspecified; K21.9 Gastro-esophageal reflux disease without esophagitis; Z87.891 Personal history of nicotine dependence; Z92.3 Personal history of irradiation; Z85.118 Personal history of other malignant neoplasm of bronchus and lung
CPT/HCPCS: 71045; 80053; 81001; 82550; 82805; 83605; 83735; 84484; 85025; 87040; 87077; 87086; 87186; 87804; 93005; 94640; 94664; 96361; 96365; J0744; J1650; J2930; J3480; J7030; J7042; J7512

== ENCOUNTER 2017-06-21 14:06 | Inpatient (IN) | payer MEDICARE, BC ==
[~2017-06-21] VITALS: Ht 152.4 cm; Wt 93.6 kg
[2017-06-21] VITALS (7 sets, daily range): BP systolic 110–135; BP diastolic 57–78; PULSE 86–94; RESP 16–18; TEMP 98.6–99.4; O2SAT 97–99
[~2017-06-21 14:06] MED LIST changes: +BENA25CA4 PO; +CENTCHW4 PO; -CENTTAB PO; -CLAR5TAB PO; -DEXA4TAB PO; +PANT40TA3 PO; -PERC5TAB12 PO; +PRED20 PO
[2017-06-21] MEDS ORDERED: IODIXANOL 320 MG/ML 10 ML VIAL (for Rad CT) IVCONTRAST ONE (14:07)
[2017-06-21] MEDS ORDERED: SODIUM CHLOR 0.9% 1000 ML INJ 1,000 ML IV ONE (14:16)
--- NOTE | 2017-06-21 14:21 | PD ---
HPI Chief Complaint: Stroke Alert Time Seen by Provider: 14:15 Travel History International Travel<30 days: No Contact w/Intl Traveler<30days: No Traveled to known affect area: No History of Present Illness HPI 71-year-old female patient with history of previous cerebral aneurysm, status post CSF shunt placed by Dr. Talamantes, presents to the ER today because of an episode of disorientation according to patient's , brought in by EMS, and EMS noted that she had a facial asymmetry and called a stroke alert. Patient's son arrives in the ER and states the patient has had some facial asymmetry in the past at times, and has been having episodes of intermittent disorientation for several days. Patient currently denies any chest pains, trouble breathing, headaches, or other issues. However, her baseline is that she has some slurred speech, facial asymmetry, and can be disoriented intermittently. She apparently had a UTI recently and has been treated for it with antibiotics. Modifying Factors: None Associated Signs & Symptoms: Stroke alert, facial asymmetry, disorientation Risk Factors: History of cerebral aneurysm, shunt PFSH Past Medical History Asthma: No Autoimmune Disease: No Blood Disorders: No Depression: Yes Cancer: Yes (RLL lung) Cardiovascular Problems: No COPD: No Cerebrovascular Accident: Yes (TIA 09/16- LEFT SIDED WEAKNESS) Diabetes: No Diminished Hearing: No Endocrine: No GERD: Yes Genitourinary: Yes Hepatitis: No Immune Disorder: No Implanted Vascular Access Dvce: Yes Musculoskeletal: Yes Neurologic: Yes (BRAIN ANEURYSM 06/22) Psychiatric: Yes (DENIES) Reproductive: No Respiratory: Yes (SMOKER X 50 YEARS) Immunizations Current: Yes Radiation Therapy: Yes Seizures: Yes Sleep Apnea: No Thyroid Disease: No PNEUMOCCOCAL Vaccine (Year): 2 Menopausal: Yes : 2 Para: 3 Past Surgical History Body Medical Devices: SOCIAL SERVICES COORDINATOR SHUNT Eye Surgery: Yes (BILAT CATARACT REMOVALS WITH LENS IMPLANTS) Neurologic Surgery: Yes (BRAIN BLEED (SHUNT)) Other Surgery: Yes (biopsy lung) Social History Alcohol Use: No Tobacco Use: No (QUIT,BUT SMOKED FOR 50 YEARS) Substance Use: No Allergies-Medications (Allergen,Severity, Reaction): Coded Allergies: Sulfa (Sulfonamide Antibiotics) (Verified Allergy, Severe, rash, 06/21/17) adhesive (Verified Allergy, Severe, rash, 06/21/17) cephalexin (Verified Allergy, Severe, rash, 06/21/17) diclofenac (Verified Allergy, Severe, rash, 06/21/17) erythromycin base (Verified Allergy, Severe, rash, 06/21/17) ibuprofen (Verified Allergy, Severe, rash, 06/21/17) naproxen (Verified Allergy, Severe, rash, 06/21/17) neomycin (Verified Allergy, Severe, rash, 06/21/17) rofecoxib (Verified Allergy, Severe, rash, 06/21/17) Reported Meds & Prescriptions Reported Meds & Active Scripts Active Reported Centrum (Multiple Vitamins W/ Minerals) 1 Chew 1 Tab PO DAILY Benadryl Allergy (Diphenhydramine HCl) 25 Mg Cap 25 Tab PO BID Zoloft (Sertraline HCl) 50 Mg Tab 50 Mg PO DAILY Keppra (Levetiracetam) 500 Mg Tab 500 Mg PO BID Symbicort Inh (Budesonide/Formoterol Fumarate) 80-4.5 Mcg/Act Aero 1 Puff INH Q12HR Aspirin 81 Mg Chew 81 Mg CHEW DAILY Review of Systems ROS Limitations: Altered Mental Status Physical Exam Narrative GENERAL: Well-developed elderly white female patient currently in mild distress. Awake, alert, disoriented. SKIN: Focused skin assessment warm/dry. HEAD: Atraumatic. Normocephalic. EYES: Pupils equal and round. No scleral icterus. No injection or drainage. ENT: No nasal bleeding or discharge. Mucous membranes pink and moist. NECK: Trachea midline. No JVD. CARDIOVASCULAR: Regular rate and rhythm. No murmur appreciated. RESPIRATORY: No accessory muscle use. Clear to auscultation. Breath sounds equal bilaterally. GASTROINTESTINAL: Abdomen soft, non-tender, nondistended. Hepatic and splenic margins not palpable. MUSCULOSKELETAL: No obvious deformities. No clubbing. No cyanosis. No edema. NEUROLOGICAL: Awake and alert. Mild facial asymmetry no pronator drift.. Motor grossly within normal limits. Normal speech. Following commands. PSYCHIATRIC: Appropriate mood and affect; insight and judgment normal. Data Data Last Documented VS Vital Signs Date Time Temp Pulse Resp B/P (MAP) Pulse Ox O2 Delivery O2 Flow Rate FiO2 06/21/17 15:33 89 18 132/62 (85) 97 Nasal Cannula 2.00 06/21/17 14:08 99.4 Orders Orders Activity Bed Rest (06/21/17 ) Electrocardiogram (06/21/17 ) I-Stat Profile (06/21/17 14:16) Prothrombin Time / Inr (Pt) (06/21/17 14:16) Act Partial Throm Time (Ptt) (06/21/17 14:16) Complete Blood Count With Diff (06/21/17 14:16) Fibrinogen (06/21/17 14:16) Creatine Kinase (Cpk) (06/21/17 14:16) Troponin I (06/21/17 14:16) Ua Includes Microscopic (06/21/17 14:16) Drug Screen, Random Urine (06/21/17 14:16) Type And Screen (06/21/17 14:16) Ct Brain W/O Iv Contrast(Rout) (06/21/17 ) Chest, Single Ap (06/21/17 ) Cta Brain W Iv Contrast W 3d (06/21/17 14:16) Cta Neck W Iv Contrast W 3d (06/21/17 14:16) Consult Neurology (06/21/17 ) Blood Glucose (06/21/17 14:16) Ecg Monitoring (06/21/17 14:16) Neuro Checks Q2HX12,Q4H (06/21/17 14:16) Nursing Bedside Swallow Assess .ONCE (06/21/17 14:16) Iv Access Insert/Monitor (06/21/17 14:16) NPO (06/21/17 14:16) Oximetry (06/21/17 14:16) Resp Oxygen Nc Stroke (06/21/17 ) Sodium Chlor 0.9% 1000 Ml Inj (Ns 1000 M (06/21/17 14:16) Cath For Specimen (06/21/17 14:16) Iodixanol 320 Inj (Rad Ct) (Visipaque 32 (06/21/17 14:07) (Hub Use Only)Inp Phy Cons/Ref (06/21/17 ) Admit Order (Ed Use Only) (06/21/17 16:54) Admit To Inpatient (06/21/17 ) Code Status (06/21/17 16:53) Vital Signs (Adult) Q4H (06/21/17 16:53) Activity Oob Ad Kendy (06/21/17 16:53) Document Review Specialist / Telemetry .CONTINUOUS (06/21/17 16:53) Intake + Output JERRY.QSHIFT (06/21/17 16:53) Notify Dr: Other (06/21/17 16:53) Diet 1800 Ada Cons Carb (06/21/17 Dinner) Diet Heart Healthy (06/21/17 Dinner) Sodium Chlor 0.9% 1000 Ml Inj (Ns 1000 M (06/21/17 16:53) Sodium Chloride 0.9% Flush (Ns Flush) (06/21/17 17:00) Sodium Chloride 0.9% Flush (Ns Flush) (06/21/17 21:00) Acetaminophen (Tylenol) (06/21/17 17:00) Ondansetron Inj (Zofran Inj) (06/21/17 17:00) Basic Metabolic Panel (Bmp) (06/22/17 06:00) Complete Blood Count With Diff (06/22/17 06:00) Creatine Kinase (Cpk) (06/21/17 16:53) Creatine Kinase (Cpk) (06/21/17 22:53) Troponin I (06/21/17 16:53) Troponin I (06/21/17 22:53) Resp Oxygen Johan C Titrat 1-4 L (06/21/17 ) Pt Request For Service (06/21/17 16:53) Ot Request For Service (06/21/17 16:53) Speech Therapy Consult-Eval/Tx (06/21/17 16:53) Case Management Consult (06/21/17 16:53) Enoxaparin Inj (Lovenox Inj) (06/21/17 17:00) Naloxone Inj (Narcan Inj) (06/21/17 17:00) Sennosides (Senokot) (06/21/17 17:00) Bisacodyl Supp (Dulcolax Supp) (06/21/17 17:00) Lactulose Liq (Lactulose Liq) (06/21/17 17:00) Inpatient Certification (06/21/17 ) Labs Laboratory Tests Test 06/21/17 14:10 06/21/17 15:40 White Blood Count 11.9 TH/MM3 Red Blood Count 3.29 MIL/MM3 Hemoglobin 8.8 GM/DL Bedside Hemoglobin 8.8 G/DL Hematocrit 25.8 % Bedside Hematocrit 26.0 % Mean Corpuscular Volume 78.4 FL Mean Corpuscular Hemoglobin 26.8 PG Mean Corpuscular Hemoglobin Concent 34.2 % Red Cell Distribution Width 16.1 % Platelet Count 426 TH/MM3 Mean Platelet Volume 7.3 FL Neutrophils (%) (Auto) 75.9 % Lymphocytes (%) (Auto) 11.9 % Monocytes (%) (Auto) 6.0 % Eosinophils (%) (Auto) 5.3 % Basophils (%) (Auto) 0.9 % Neutrophils # (Auto) 9.0 TH/MM3 Lymphocytes # (Auto) 1.4 TH/MM3 Monocytes # (Auto) 0.7 TH/MM3 Eosinophils # (Auto) 0.6 TH/MM3 Basophils # (Auto) 0.1 TH/MM3 CBC Comment DIFF FINAL Differential Comment Prothrombin Time 10.6 SEC Prothromb Time International Ratio 1.0 RATIO Activated Partial Thromboplast Time 25.1 SEC Fibrinogen GREATER THAN 860 mg/dL Bedside Sodium 139 MMOL/L Bedside Potassium 4.4 MMOL/L Bedside Chloride 101 MMOL/L Bedside Blood Urea Nitrogen 22 MG/DL Bedside Creatinine 0.9 MG/DL Bedside Glucose 101 MG/DL Total Creatine Kinase 40 U/L Troponin I LESS THAN 0.02 NG/ML Urine Color YELLOW Urine Turbidity CLEAR Urine pH 6.5 Urine Specific [place] GREATER THAN 1.050 Urine Protein 30 mg/dL Urine Glucose (UA) NEG mg/dL Urine Ketones NEG mg/dL Urine Occult Blood SMALL Urine Nitrite NEG Urine Bilirubin NEG Urine Urobilinogen LESS THAN 2.0 MG/DL Urine Leukocyte Esterase NEG Urine RBC 7 /hpf Urine WBC LESS THAN 1 /hpf Urine Squamous Epithelial Cells 1 /hpf Urine Mucus FEW /lpf MDM Medical Screen Exam Complete: Yes Emergency Medical Condition: Yes Medical Record Reviewed: Yes Differential Diagnosis ICH versus CVA versus metabolic issues Narrative Course Stroke alert was initially called due to the facial asymmetry. However, after patient's son arrived, states that she appears to be fairly at baseline and she has had some baseline facial asymmetry. She has history of a aneurysmal bleed and CSF shunt, done by Dr. Talamantes, follows up with Dr. Bautista for neurology, and apparently patient has been in the hospital a week and half ago for UTI. She has had a few days of staring off episodes according to the son and apparently today it got worse according to patient's . At this point, case was discussed with neurology Dr. Baehna and she states that the patient would not be a good TPA candidate, this does not appear to be high enough stroke criteria. At this point, my plan would be to admit the patient for further treatment. Case is discussed with Dr. Vegas for admission. Stroke Alert NIHSS NIH Stroke Scale Result: 1 NIHSS Time Completed: 14:45 Thrombolytic Contraindications Contraindications Comment: History of ICH, CSF shunt, not significantly changed from baseline Diagnosis Diagnosis: Primary Impression: Altered mental status Admitting Physician Requests: Admit Puh Sage MD Jun 21, 2017 14:21
[2017-06-21 14:29] LABS: BASOPHIL # 0.1 TH/MM3 (0-0.2); BASOPHIL % 0.9 % (0.0-2.0); EOSINOPHIL # 0.6 TH/MM3 (0-0.4); EOSINOPHIL % 5.3 % (0.0-4.0); HEMATOCRIT 25.8 % (35.0-46.0); HEMOGLOBIN 8.8 GM/DL (11.6-15.3); LYMPH % 11.9 % (9.0-44.0); LYMPHOCYTE # 1.4 TH/MM3 (1.0-4.8); MEAN CELL VOLUME 78.4 FL (80.0-100.0); MEAN CORPUSCULAR HEMOGLOBIN 26.8 PG (27.0-34.0); MEAN CORPUSCULAR HGB CONC 34.2 % (32.0-36.0); MEAN PLATELET VOLUME 7.3 FL (7.0-11.0); MONOCYTE # 0.7 TH/MM3 (0-0.9); NEUT % 75.9 % (16.0-70.0); PLATELET COUNT 426 TH/MM3 (150-450); RED BLOOD COUNT 3.29 MIL/MM3 (4.00-5.30); RED CELL DISTRIBUTION WIDTH 16.1 % (11.6-17.2); WHITE BLOOD COUNT 11.9 TH/MM3 (4.0-11.0)
[2017-06-21 14:42] LABS: PROTHROMBIN TIME - PATIENT 10.6 SEC (9.8-11.6)
[2017-06-21 14:44] LABS: FIBRINOGEN GREATER THAN 860 mg/dL (227-377)
[2017-06-21 14:49] LABS: TROPONIN I LESS THAN 0.02 NG/ML (0.02-0.05)
--- NOTE | 2017-06-21 14:53 | RADRPT ---
EXAM DATE/TIME: 06/21/2017 14:17 [facility] COMPARISON: No previous studies available for comparison. INDICATIONS : Stroke alert, lef sided facial droop, garbeld speech and slow to respond RADIATION DOSE: 28.79 CTDIvol (mGy) This report was called to Dr. Barakat at 1420 MEDICAL HISTORY : Non-responsive. SURGICAL HISTORY : DOCKWORKER shunt, craniotomy, aneursym clip ENCOUNTER: Initial ACUITY: 1 day PAIN SCALE: 0/10 LOCATION: cranial TECHNIQUE: Multiple contiguous axial images were obtained of the head. Using automated exposure control and adj ustment of the mA and/or kV according to patient size, radiation dose was kept as low as reasonably a chievable to obtain optimal diagnostic quality images. DICOM format image data is available electro nically for review and comparison. 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 The right lateral ventricle is dilated. Shunt is entering from the left. Left hemisphere is unremarkable. Posterior fossa appears normal. CONCLUSION: Aneurysm clipping, negative for parenchymal hemorrhage. Brandt Carrera MD FACR on June 21, 2017 at 14:24 Board Certified Radiologist. This report was verified electronically.
--- NOTE | 2017-06-21 14:55 | RADRPT ---
EXAM DATE/TIME: 06/21/2017 14:17 [facility] COMPARISON: No previous studies available for comparison. INDICATIONS : Left sided facial droop, garbeled speech IV CONTRAST: 100 cc Visipaque (iodixanol) IV ; Cumulative dose for multiple exams. RADIATION DOSE: 10.09 CTDIvol (mGy) MEDICAL HISTORY : Non-responsive. SURGICAL HISTORY : Crainotomy, shunt placement, anerusym clip ENCOUNTER: Initial ACUITY: 1 day PAIN SCALE: Non-responsive LOCATION: cranial TECHNIQUE: Volumetric scanning was performed using a multi-row detector CT scanner. The data was post processed with a variety of visualization algorithms including full volume maximum intensity projection, multi -planar sliding thin slab reformation, curved planar reformation, and surface rendering techniques. Using automated exposure control and adjustment of the mA and/or kV according to patient size, radiat ion dose was kept as low as reasonably achievable to obtain optimal diagnostic quality images. DICO M format image data is available electronically for review and comparison. FINDINGS: Aneurysm clip in the right skull base region alongside the supraclinoid carotid produces streak artif act and appears local visualization of the vascular structures to some mild degree. There is no evide nce of major vessel occlusion or significant stenosis. No definite residual or recurrent aneurysm is identified. No aneurysms elsewhere. There is no evidence of vascular malformation. CONCLUSION: No acute intracranial vascular findings. Kvng Mackenzie MD on June 21, 2017 at 14:48 Board Certified Radiologist. This report was verified electronically.
--- NOTE | 2017-06-21 15:13 | RADRPT ---
EXAM DATE/TIME: 06/21/2017 14:47 [facility] COMPARISON: CHEST SINGLE AP, June 05, 2017, 9:55. INDICATIONS : Stroke alert MEDICAL HISTORY : Lung cancer SURGICAL HISTORY : Craniotomy. shunt placement, aneurysm clip ENCOUNTER: Initial ACUITY: 1 day PAIN SCORE: 0/10 LOCATION: Bilateral chest FINDINGS: Ventriculoperitoneal shunt is noted with its tip in the right upper quadrant. The heart is stable. Th e pulmonary vascular pattern is normal. The lungs are clear. CONCLUSION: No acute cardiopulmonary disease. Garcia Horner MD on June 21, 2017 at 15:09 Board Certified Radiologist. This report was verified electronically.
--- NOTE | 2017-06-21 16:01 | RADRPT ---
EXAM DATE/TIME: 06/21/2017 14:17 [place] COMPARISON: No previous studies available for comparison. INDICATIONS : Stroke alert, left sided facial droop, garbled speech IV CONTRAST: 100 cc Visipaque (iodixanol) IV ; Cumulative dose for multiple exams. RADIATION DOSE: 10.09 CTDIvol (mGy) MEDICAL HISTORY : Non-responsive. SURGICAL HISTORY : Crainotomy, shunt placement, aneursym clip ENCOUNTER: Initial ACUITY: 1 day PAIN SCALE: Non-responsive LOCATION: neck Elevated flow velocities and ICA/CCA ratios have been found to correlate with increased degrees of vessel stenosis, calculated as percentage of diameter relative to a normal segment of distal ICA/CCA. TECHNIQUE: Volumetric scanning was performed using a multirow detector CT scanner. The data was post processed with a variety of visualization algorithms including full-volume maximum intensity projection, multip lanar sliding thin-slab reformation, curved-planar reformation, and surface-rendering techniques. Us ing automated exposure control and adjustment of the mA and/or kV according to patient size, radiatio n dose was kept as low as reasonably achievable to obtain optimal diagnostic quality images. DICOM f ormat image data is available electronically for review and comparison. FINDINGS: AORTIC ARCH: There is a three-vessel origin of the great vessels from the aorta. No evidence of ostial narrowing. RIGHT CAROTID: Mild eccentric soft and calcific plaque at the right carotid bifurcation was somewhat less than 50% s tenotic narrowing present. Beyond this proximal disease, the ICA is widely patent to the skull base. LEFT CAROTID: Mild eccentric soft and calcific plaque at the left carotid bifurcation with significantly less than 50% stenotic narrowing present. Beyond this proximal disease, the ICA is widely patent to the skull b ase. VERTEBRALS: The vertebral arteries have a symmetric diameter. No stenotic lesions are seen. CONCLUSION: Mild bilateral carotid bifurcation stenosis. Kvng Mackenzie MD on June 21, 2017 at 14:53 Board Certified Radiologist. This report was verified electronically.
[2017-06-21 16:29] LABS: BILIRUBIN, URINE NEG (NEG); BLOOD, URINE SMALL (NEG); GLUCOSE,URINE NEG (NEG); KETONE, URINE NEG (NEG); MUCUS URINE FEW /lpf (OCC); NITRITE,URINE NEG (NEG); PH, URINE 6.5 (5.0-8.5); SQUAMOUS EPITHELIAL CELL URINE 1 /hpf (0-5); URINE COLOR YELLOW (YELLW/STRAW); URINE LEUKOCYTE ESTERASE NEG (NEG)
--- NOTE | 2017-06-21 16:57 | HHI.HP ---
[facility] Chandrakant Huang MD Admission Diagnosis Diagnoses: Chief Complaint: Stroke Alert Travel History International Travel<30 Days: No Contact w/Intl Traveler <30 Da: No Traveled to Known Affected Are: No History of Present Illness This is a pleasant 71 y/o Female with Cerebral aneurysm history, Status post CSF shunt placed by Doctor Albin who came to ER with episode of disorientation, according to patient's , brought in by EMS, and EMS noted that she had a facial asymmetry and called a stroke alert. Patient's son arrives in the ER and states the patient has had some facial asymmetry in the past at times, and has been having episodes of intermittent disorientation for several days. Patient currently denies any chest pains, trouble breathing, headaches, or other issues. However, her baseline is that she has some slurred speech, facial asymmetry, and can be disoriented intermittently. She apparently had a UTI recently and has been treated for it with antibiotics. Seen in the presence of her he states she is not able to walk by her self for the last 8 years and is at maximum assist at home, is having recurrent episodes of disorientation, this was discussed with Neurology specialist Doctor Fercho who will see the patient tomorrow. Review of Systems Constitutional: DENIES: Fever, Chills, Change in appetite Endocrine: DENIES: Heat/cold intolerance Eyes: DENIES: Blurred vision, Eye pain Except as stated in HPI: all other systems reviewed are Neg Past Family Social History Past Medical History Depression Right Lower Lobe Lung Cancer TIA 09/16 left sided weakness GERD Brain Aneurysm / Chronic Smoker for 50 years Past Surgical History MEAT PULLER shunt Bilateral Cataract surgery with lens implants Brain bleed Lung biopsy Reported Medications Reported Meds & Active Scripts Active Reported Centrum (Multiple Vitamins W/ Minerals) 1 Chew 1 Tab PO DAILY Benadryl Allergy (Diphenhydramine HCl) 25 Mg Cap 25 Tab PO BID Zoloft (Sertraline HCl) 50 Mg Tab 50 Mg PO DAILY Keppra (Levetiracetam) 500 Mg Tab 500 Mg PO BID Symbicort Inh (Budesonide/Formoterol Fumarate) 80-4.5 Mcg/Act Aero 1 Puff INH Q12HR Aspirin 81 Mg Chew 81 Mg CHEW DAILY Allergies: Coded Allergies: Sulfa (Sulfonamide Antibiotics) (Verified Allergy, Severe, rash, 06/21/17) adhesive (Verified Allergy, Severe, rash, 06/21/17) cephalexin (Verified Allergy, Severe, rash, 06/21/17) diclofenac (Verified Allergy, Severe, rash, 06/21/17) erythromycin base (Verified Allergy, Severe, rash, 06/21/17) ibuprofen (Verified Allergy, Severe, rash, 06/21/17) naproxen (Verified Allergy, Severe, rash, 06/21/17) neomycin (Verified Allergy, Severe, rash, 06/21/17) rofecoxib (Verified Allergy, Severe, rash, 06/21/17) Active Ordered Medications Current Medications Medications (Trade) Dose Ordered Sig/Shamar Route Start Time Stop Time Status Last Admin Sodium Chloride 1,000 ml @ 100 mls/hr Q10H IV 06/21/17 18:00 06/21/17 18:32 (NS Flush) 2 ml UNSCH PRN IV FLUSH 06/21/17 17:00 (NS Flush) 2 ml BID IV FLUSH 06/21/17 21:00 (Tylenol) 650 mg Q4H PRN PO 06/21/17 17:00 (Zofran Inj) 4 mg Q6H PRN IVP 06/21/17 17:00 (Lovenox Inj) 40 mg Q24H SQ 06/21/17 18:00 06/21/17 18:33 (Narcan Inj) 0.4 mg UNSCH PRN IV PUSH 06/21/17 17:00 (Senokot) 17.2 mg Q12H PRN PO 06/21/17 17:00 (Dulcolax Supp) 10 mg DAILY PRN RECTAL 06/21/17 17:00 (Lactulose Liq) 30 ml DAILY PRN PO 06/21/17 17:00 (Aspirin Chew) 81 mg DAILY CHEW 06/22/17 09:00 (Symbicort 80-4.5 Mcg Inh) 1 puff Q12HR INH 06/21/17 21:00 (Keppra) 500 mg BID PO 06/21/17 21:00 (Theragran M Tab) 1 tab DAILY PO 06/22/17 09:00 (Zoloft) 50 mg DAILY PO 06/22/17 09:00 Family History Asked and denied her states all . Social History Was a heavy smoker for 50 years denies toxic habits Physical Exam Vital Signs Vital Signs Date Time Temp Pulse Resp B/P (MAP) Pulse Ox O2 Delivery O2 Flow Rate FiO2 06/21/17 15:33 89 18 132/62 (85) 97 Nasal Cannula 2.00 06/21/17 15:16 94 18 129/60 (83) 97 Room Air 2.00 06/21/17 15:11 97 Nasal Cannula 2.00 06/21/17 14:45 88 16 135/78 (97) 97 Nasal Cannula 2.00 06/21/17 14:11 91 18 99 Room Air 06/21/17 14:08 99.4 90 18 110/70 (83) 98 Physical Exam GENERAL: Obese patient at this time alert and oriented. SKIN: Focused skin assessment warm/dry. HEAD: Atraumatic. Normocephalic. EYES: Pupils equal and round. No scleral icterus. No injection or drainage. ENT: No nasal bleeding or discharge. Mucous membranes pink and moist. NECK: Trachea midline. No JVD. CARDIOVASCULAR: Regular rate and rhythm. No murmur appreciated. RESPIRATORY: No accessory muscle use. Clear to auscultation. Breath sounds equal bilaterally. GASTROINTESTINAL: Abdomen soft, non-tender, nondistended. Hepatic and splenic margins not palpable. MUSCULOSKELETAL: No obvious deformities. No clubbing. No cyanosis. No edema. NEUROLOGICAL: Awake and alert. Mild facial asymmetry no pronator drift.. Motor grossly within normal limits. Normal speech. Following commands. PSYCHIATRIC: Appropriate mood and affect; insight and judgment normal. Laboratory Laboratory Tests Test 06/21/17 14:10 06/21/17 15:40 White Blood Count 11.9 Red Blood Count 3.29 Hemoglobin 8.8 Bedside Hemoglobin 8.8 Hematocrit 25.8 Bedside Hematocrit 26.0 Mean Corpuscular Volume 78.4 Mean Corpuscular Hemoglobin 26.8 Mean Corpuscular Hemoglobin Concent 34.2 Red Cell Distribution Width 16.1 Platelet Count 426 Mean Platelet Volume 7.3 Neutrophils (%) (Auto) 75.9 Lymphocytes (%) (Auto) 11.9 Monocytes (%) (Auto) 6.0 Eosinophils (%) (Auto) 5.3 Basophils (%) (Auto) 0.9 Neutrophils # (Auto) 9.0 Lymphocytes # (Auto) 1.4 Monocytes # (Auto) 0.7 Eosinophils # (Auto) 0.6 Basophils # (Auto) 0.1 CBC Comment DIFF FINAL Differential Comment Prothrombin Time 10.6 Prothromb Time International Ratio 1.0 Activated Partial Thromboplast Time 25.1 Fibrinogen GREATER THAN 860 Bedside Sodium 139 Bedside Potassium 4.4 Bedside Chloride 101 Bedside Blood Urea Nitrogen 22 Bedside Creatinine 0.9 Bedside Glucose 101 Total Creatine Kinase 40 Troponin I LESS THAN 0.02 Urine Color YELLOW Urine Turbidity CLEAR Urine pH 6.5 Urine Specific [place] GREATER THAN 1.050 Urine Protein 30 Urine Glucose (UA) NEG Urine Ketones NEG Urine Occult Blood SMALL Urine Nitrite NEG Urine Bilirubin NEG Urine Urobilinogen LESS THAN 2.0 Urine Leukocyte Esterase NEG Urine RBC 7 Urine WBC LESS THAN 1 Urine Squamous Epithelial Cells 1 Urine Mucus FEW Result Diagram: 06/21/17 1410 Imaging Last Impressions Neck CTA 06/21/17 1416 Signed Impressions: Service Date/Time: Wednesday, June 21, 2017 14:17 - CONCLUSION: Mild bilateral carotid bifurcation stenosis. Kvng Mackenzie MD Head CTA 06/21/17 1416 Signed Impressions: Service Date/Time: Wednesday, June 21, 2017 14:17 - CONCLUSION: No acute intracranial vascular findings. Kvng Mackenzie MD Head CT 06/21/17 0000 Signed Impressions: Service Date/Time: Wednesday, June 21, 2017 14:17 - CONCLUSION: Aneurysm clipping, negative for parenchymal hemorrhage. Brandt Carrera MD FACR Chest X-Ray 06/21/17 0000 Signed Impressions: Service Date/Time: Wednesday, June 21, 2017 14:47 - CONCLUSION: No acute cardiopulmonary disease. Garcia Horner MD Caprini VTE Risk Assessment Caprini VTE Risk Assessment: Mod/High Risk (score >= 2) Caprini Risk Assessment Model Point Value = 1 Point Value = 2 Point Value = 3 Point Value = 5 Age 41-60 Minor surgery BMI > 25 kg/m2 Swollen legs Varicose veins or History of unexplained or recurrent spontaneous Oral contraceptives or hormone replacement Sepsis (< 1 month) Serious lung disease, including pneumonia (< 1 month) Abnormal pulmonary function Acute myocardial infarction Congestive heart failure (< 1 month) History of inflammatory bowel disease Medical patient at bed rest Age 61-74 Arthroscopic surgery Major open surgery (> 45 min) Laparoscopic surgery (> 45 min) Malignancy Confined to bed (> 72 hours) Immobilizing plaster cast Central venous access Age >= 75 History of VTE Family history of VTE Factor V Leiden Prothrombin [id number] Lupus anticoagulant Anticardiolipin antibodies Elevated serum homocysteine Heparin-induced thrombocytopenia Other congenital or acquired thrombophilia Stroke (< 1 month) Elective arthroplasty Hip, pelvis, or leg fracture Acute spinal cord injury (< 1 month) Prophylaxis Regimen Total Risk Factor Score Risk Level Prophylaxis Regimen 0-1 Low Early ambulation 2 Moderate Order ONE of the following: *Sequential Compression Device (SCD) *Heparin 5000 units SQ BID 3-4 Higher Order ONE of the following medications: *Heparin 5000 units SQ TID *Enoxaparin/Lovenox 40 mg SQ daily (WT < 150 kg, CrCl > 30 mL/min) *Enoxaparin/Lovenox 30 mg SQ daily (WT < 150 kg, CrCl > 10-29 mL/min) *Enoxaparin/Lovenox 30 mg SQ BID (WT < 150 kg, CrCl > 30 mL/min) AND/OR *Sequential Compression Device (SCD) 5 or more Highest Order ONE of the following medications: *Heparin 5000 units SQ TID (Preferred with Epidurals) *Enoxaparin/Lovenox 40 mg SQ daily (WT < 150 kg, CrCl > 30 mL/min) *Enoxaparin/Lovenox 30 mg SQ daily (WT < 150 kg, CrCl > 10-29 mL/min) *Enoxaparin/Lovenox 30 mg SQ BID (WT < 150 kg, CrCl > 30 mL/min) AND *Sequential Compression Device (SCD) Assessment and Plan Assessment and Plan 1. Recurrent disorientation in a patient who was lethargic some moments ago, disoriented, found vital signs within normal Limits, Hemoglobin 8.8, WBC mild increase to 11.9 Neurology specialist consulted, Imaging studies did not found acute pathology continue her home anti convulsants. asked for Paint Department Supervisor, PT/OT and Speech therapy. 2. Depression to continue home medicines 3. Right lower lobe lung cancer status post Radiation therapy. 4. TIA 09/16 left sided weakness, as per her the patient is maximum assist a for the last eight years 5. GERD by history to continue PPIs 6. Brain Aneurysm 06/22. she was heavy smoker for the last 50 years DVT prophylaxis with Lovenox. Code Status Full code. Discussed Condition With Phu Sage MD Physician Certification 2 Midnight Certification Type: Admission for Inpatient Services Order for Inpatient Services The services are ordered in accordance with Medicare regulations or non- Medicare payer requirements, as applicable. In the case of services not specified as inpatient-only, they are appropriately provided as inpatient services in accordance with the 2-midnight benchmark. Estimated LOS (days): 1 days is the estimated time the patient will need to remain in the hospital, assuming treatment plan goals are met and no additional complications. Post-Hospital Plan: Home Matti Garcia MD Jun 21, 2017 16:57
[2017-06-21] MEDS ORDERED: BISACODYL 10 MG SUPP RECTAL PRN (17:00)
[2017-06-21] MEDS ORDERED: SODIUM CHLORIDE 0.9% FLUSH 10 ML FLUSH IV FLUSH PRN (17:00)
[2017-06-21] MEDS ORDERED: LACTULOSE SYRUP 20 GM/30 ML CUP PO PRN (17:00)
[2017-06-21] MEDS ORDERED: NALOXONE HCL 0.4 MG/ML AMP IV PUSH PRN (17:00)
[2017-06-21] MEDS ORDERED: ONDANSETRON HCL 4 MG/2 ML VIAL IVP PRN (17:00)
[2017-06-21] MEDS ORDERED: ACETAMINOPHEN 325 MG TAB PO PRN (17:00)
[2017-06-21] MEDS ORDERED: SENNOSIDES 8.6 MG TAB PO PRN (17:00)
[2017-06-21] MEDS: SODIUM CHLOR 0.9% 1000 ML INJ 1,000 ML IV SCH (18:32)
[2017-06-21] MEDS: ENOXAPARIN SODIUM 40 MG/0.4 ML SYRINGE SQ SCH (18:33)
[2017-06-21] MEDS: SODIUM CHLORIDE 0.9% FLUSH 10 ML FLUSH IV FLUSH SCH (21:00)
[2017-06-21] MEDS: BUDESONIDE-FORMOTEROL 80/4.5 MCG INHALER INH SCH (21:00)
[2017-06-21 22:35] LABS: TROPONIN I LESS THAN 0.02 NG/ML (0.02-0.05)
[2017-06-21] MEDS: levETIRAcetam 500 MG TAB PO SCH (22:44)
[2017-06-22] VITALS (8 sets, daily range): BP systolic 119–136; BP diastolic 53–63; PULSE 76–89; RESP 17–20; TEMP 97.1–98.9; O2SAT 95–99
[2017-06-22] MEDS: SODIUM CHLOR 0.9% 1000 ML INJ 1,000 ML IV SCH ×2 (02:32→12:30)
[2017-06-22 02:53] LABS: AUTOMATED NEUTROPHIL # 6.6 TH/MM3 (1.8-7.7); BASOPHIL # 0.1 TH/MM3 (0-0.2); BASOPHIL % 1.6 % (0.0-2.0); EOSINOPHIL # 0.6 TH/MM3 (0-0.4); EOSINOPHIL % 7.2 % (0.0-4.0); HEMATOCRIT 22.8 % (35.0-46.0); HEMOGLOBIN 7.7 GM/DL (11.6-15.3); LYMPH % 10.7 % (9.0-44.0); LYMPHOCYTE # 0.9 TH/MM3 (1.0-4.8); MEAN CELL VOLUME 78.3 FL (80.0-100.0); MEAN CORPUSCULAR HEMOGLOBIN 26.4 PG (27.0-34.0); MEAN CORPUSCULAR HGB CONC 33.8 % (32.0-36.0); MONO % 5.9 % (0.0-8.0); MONOCYTE # 0.5 TH/MM3 (0-0.9); NEUT % 74.6 % (16.0-70.0); PLATELET COUNT 414 TH/MM3 (150-450); RED BLOOD COUNT 2.91 MIL/MM3 (4.00-5.30); WHITE BLOOD COUNT 8.8 TH/MM3 (4.0-11.0)
[2017-06-22 03:09] LABS: BICARBONATE 30.5 MEQ/L (21.0-32.0); BLOOD UREA NITROGEN 20 MG/DL (7-18); CALCIUM 8.1 MG/DL (8.5-10.1); CHLORIDE 106 MEQ/L (98-107); CREATININE 0.66 MG/DL (0.50-1.00); GLOMERULAR FILTRATION RATE 88 ML/MIN (>89); GLUCOSE,RANDOM 131 MG/DL (74-106); SODIUM (NA) 141 MEQ/L (136-145)
[2017-06-22 03:12] LABS: TROPONIN I LESS THAN 0.02 NG/ML (0.02-0.05)
[2017-06-22] MEDS: SODIUM CHLORIDE 0.9% FLUSH 10 ML FLUSH IV FLUSH SCH ×2 (09:00→20:39)
[2017-06-22] MEDS: levETIRAcetam 500 MG TAB PO SCH (09:25)
[2017-06-22] MEDS: ASPIRIN 81 MG CHEW TAB CHEW SCH (09:26)
[2017-06-22] MEDS: MULTIVITAMINS/MINERALS THERAPEUTIC TAB PO SCH (09:26)
[2017-06-22] MEDS: SERTRALINE HCL 50 MG TAB PO SCH (09:26)
--- NOTE | 2017-06-22 11:30 | HHI.PR ---
Subjective Remarks In the chair, more awake and alert name, , hospital, doesn't know the president of the and date. S/p EEG Patient is in the chair. Follows some commands. Denies having any new motor deficits. She however thinks she noticed tremors. Denies chest pain or shortness of breath no nausea or vomiting no diarrhea or constipation eating fairly well. Objective Vitals Vital Signs Date Time Temp Pulse Resp B/P (MAP) Pulse Ox O2 Delivery O2 Flow Rate FiO2 06/22/17 08:00 97.3 80 20 135/60 (85) 99 06/22/17 04:00 97.8 76 18 120/56 (77) 98 06/22/17 00:44 98.2 89 17 122/55 (77) 97 06/21/17 20:26 98.6 86 17 119/57 (77) 99 06/21/17 19:26 06/21/17 19:05 98 Room Air 06/21/17 17:34 88 18 133/64 (87) 97 Nasal Cannula 2.00 06/21/17 15:33 89 18 132/62 (85) 97 Nasal Cannula 2.00 06/21/17 15:16 94 18 129/60 (83) 97 Room Air 2.00 06/21/17 15:11 97 Nasal Cannula 2.00 06/21/17 14:45 88 16 135/78 (97) 97 Nasal Cannula 2.00 06/21/17 14:11 91 18 99 Room Air 06/21/17 14:08 99.4 90 18 110/70 (83) 98 I/O 06/21/17 06/21/17 06/21/17 06/22/17 06/22/17 06/22/17 06:59 14:59 22:59 06:59 14:59 22:59 Intake Total 210 ml 120 ml Balance 210 ml 120 ml Intake Oral 120 ml IV Total 210 ml # Voids 2 Result Diagram: 06/22/1720306/22/17203 Imaging Last Impressions Neck CTA 06/21/171415 Signed Impressions: Service Date/Time: Wednesday, June 21, 2017 14:17 - CONCLUSION: Mild bilateral carotid bifurcation stenosis. Kvng Mackenzie MD Head CTA 06/21/171415 Signed Impressions: Service Date/Time: Wednesday, June 21, 2017 14:17 - CONCLUSION: No acute intracranial vascular findings. Kvng Mackenzie MD Head CT 06/21/17 0000 Signed Impressions: Service Date/Time: Wednesday, June 21, 2017 14:17 - CONCLUSION: Aneurysm clipping, negative for parenchymal hemorrhage. Brandt Carrera MD FACR Chest X-Ray 06/21/17 0000 Signed Impressions: Service Date/Time: Wednesday, June 21, 2017 14:47 - CONCLUSION: No acute cardiopulmonary disease. Garcia Horner MD Objective Remarks GENERAL: Obese patient at this time alert and oriented. CARDIOVASCULAR: Regular rate and rhythm. No murmur appreciated. RESPIRATORY: No accessory muscle use. Clear to auscultation. Breath sounds equal bilaterally. GASTROINTESTINAL: Abdomen soft, non-tender, nondistended. Hepatic and splenic margins not palpable. MUSCULOSKELETAL: No obvious deformities. No clubbing. No cyanosis. No edema. NEUROLOGICAL: Awake and alert. Mild facial asymmetry no pronator drift.. Motor grossly within normal limits. Normal speech. Following commands. PSYCHIATRIC: Appropriate mood and affect; insight and judgment normal. A/P Assessment and Plan 1. Recurrent disorientation in a patient who was lethargic some moments ago, disoriented, found vital signs within normal Limits, Hemoglobin 8.8, WBC mild increase to 11.9 Neurology specialist consulted, Imaging studies did not found acute pathology continue her home anti convulsants. Plan for EEG/ Neuro ff, appreciate recommendations Consult Shipyard Painter, PT/OT and Speech therapy. 2. Depression to continue home medicines 3. Right lower lobe lung cancer status post Radiation therapy. 4. TIA 09/16 left sided weakness, as per her the patient is maximum assist a for the last eight years 5. GERD by history to continue PPIs 6. Brain Aneurysm 06/22. she was heavy smoker for the last 50 years DVT prophylaxis with Lovenox. Code Status Full code. Discussed Condition With pt, nurse Genna Hendricks MD Jun 22, 2017 11:30
[2017-06-22] MEDS: BUDESONIDE-FORMOTEROL 80/4.5 MCG INHALER INH SCH (12:25)
--- NOTE | 2017-06-22 12:42 | MB ---
cc: GRZEGORZ SOLARES M.D. DATE OF CONSULTATION: 06/22/17 DATE OF : 1945, 71 YEARS OLD REASON FOR CONSULTATION Change in mental status versus seizure versus stroke. HISTORY OF PRESENT ILLNESS This is a 71-year-old woman with a history of cerebral aneurysm, has a shunt, placed a number of years ago by Dr. Talamantes, comes in with some disorientation. She was here not too long ago and found to have a UTI. Her [id number] tells me that there had been some change in her Keppra dose and it had been decreased. Apparently, when her got her home the other day noted that she had weakness in the left leg and was more confused, unable to walk. However, per the note it states that she is not able to walk by herself for the last eight years and is maximum assist at home. PAST MEDICAL HISTORY 1. Depression. 2. Right lower lobe lung cancer. 3. TIA possible versus stroke. 4. Left-sided weakness. 5. Brain aneurysm in 2009. 6. Residual left-sided weakness. 7. Chronic smoker. 8. She has a DEPUTY FELONY CLERK shunt. 9. Cataract surgery. 10. Hemorrhagic infarct due to her aneurysm. MEDICATIONS Home medicines are - 1. Centrum. 2. Benadryl. 3. Zoloft. 4. Keppra. Per chart, it says 500 mg b.i.d. so somewhat confusion. 5. Symbicort. 6. Baby aspirin. ALLERGIES ALLERGIES ARE NUMEROUS, PLEASE REFER TO MAR. SOCIAL HISTORY Does not smoke. Used to smoke for 50 years. No toxic habits. NEUROLOGIC EXAMINATION VITAL SIGNS: Temperature 97.3, pulse 80, respiratory rate 20, blood pressure 135/60, sating at 99%. She is awake and alert. She is not oriented and only speaks yes and no which I am told is not unusual for her. Motor howe she does move her extremities except there is a minimal drift in the left upper. She can lift both legs up antigravity but there is some giveaway weakness, she is at best a 4/5 in the left leg. Sensory howe she states she cannot feel pain in the left leg but can feel in the left arm. DTRs at 1 to 2+. Cerebellar: She does not follow the concept. Her gait cannot be assessed without PT. LABORATORY DATA Her CBC shows a white count of 8.8 today, yesterday 11.9, hemoglobin 7.7, hematocrit 22.8, platelets are 414,000. Coags: Fibrinogen 860. Chemistries: BUN 20, her GFR is 88, glucose 131, calcium 8.1. Cardiac enzymes were negative. CK 18. Toxicology negative. Urine: She has 7 RBCs, less than 1 white cell. No culture indicated. IMAGING CT of the head did not show anything acute just the aneurysm clip. CT of the carotids: Mild disease bilaterally. [place] CTA: No acute intracranial disease. IMPRESSION A 71-year-old woman with possible increased weakness of the left leg, certainly could be due to a seizure. She has residual weakness so the grade of how much weakness is hard to tell. We recommend increasing her Keppra to 750 mg twice a day. I will order an EEG and get a PT evaluation. Further recommendations will be made. MD SAMIRA Longoria/ELOINA /11:44 AM /12:01 PM
[2017-06-22] MEDS: ENOXAPARIN SODIUM 40 MG/0.4 ML SYRINGE SQ SCH (17:52)
[2017-06-22] MEDS ORDERED: diphenhydrAMINE HCL 25 MG CAP PO ONE (20:15)
[2017-06-22] MEDS: RESP: ALBUTEROL 2.5 MG/IPRATROPIUM 0.5 MG NEB (PRN) NEB (20:22)
--- NOTE | 2017-06-22 20:26 | MG ---
cc: GRZEGORZ SOLARES M.D. Lab No: [id number] Date: Age: 71 Sex: F Race: ROOM: [facility]. With photic stimulation. Awake, drowsy, asleep study. CT shows an aneurysm clipping negative for any hemorrhage. EEG in 2009 showed slowing over the left hemisphere. This 71-year-old woman came in disoriented with weakness in the left leg, history of aneurysm, shunt. On aspirin, Zoloft, Keppra, Theragran, vitamins. DESCRIPTION OF THE RECORD: Quite a bit of artifact as described by michelle cintron master certified rv technician. The patient moving. Overall has some mild slowing theta frequency 5-6 Hz. Maybe some more attenuation over the right hemisphere compared to the left. EKG looks sinus at times. There may be questionable sharp waves over the right hemisphere with phase reversal epoch 66. This is seen predominantly over the right hemisphere. Hyperventilation not done. Photic stimulation with a mild driving response. IMPRESSION: Abnormal EEG due to some spike waves and sharps over the right hemisphere concerning for epileptic potential with the patient. She was on Keppra at that time 500 milligrams twice a day but the dosage was increased to 750 twice a day. Clinical correlation. MD SAMIRA Longoria/ARSENIO /8:02 PM /8:07 PM
[2017-06-22] MEDS: levETIRAcetam 250 MG TAB PO SCH (20:36)
[2017-06-22] MEDS: BUDESONIDE-FORMOTEROL 160/4.5 MCG INHALER INH SCH (20:40)
[2017-06-23] VITALS: BP 116/57; PULSE 88; RESP 18; TEMP 98.3; O2SAT 94
--- NOTE | 2017-06-23 00:02 | EKG ---
Date Performed: 06/21/2017 Time Performed: 15:00:13 PTAGE: 71 years EKG: Sinus rhythm POSSIBLE RIGHT VENTRICULAR CONDUCTION DELAY BORDERLINE ECG PREVIOUS TRACING : 06/05/2017 09.41 Compared to prior tracing, rate has decreased DOCTOR: Ezequiel Rizvi Interpretating Date/Time 06/23/2017 00:00:32
[2017-06-23] MEDS: SODIUM CHLOR 0.9% 1000 ML INJ 1,000 ML IV SCH (00:29)
[2017-06-23] MEDS: ASPIRIN 81 MG CHEW TAB CHEW SCH (07:52)
[2017-06-23] MEDS: BUDESONIDE-FORMOTEROL 160/4.5 MCG INHALER INH SCH (07:52)
[2017-06-23] MEDS: SERTRALINE HCL 50 MG TAB PO SCH (07:52)
[2017-06-23] MEDS: MULTIVITAMINS/MINERALS THERAPEUTIC TAB PO SCH (07:52)
[2017-06-23] MEDS: levETIRAcetam 250 MG TAB PO SCH (07:52)
[2017-06-23] MEDS: SODIUM CHLORIDE 0.9% FLUSH 10 ML FLUSH IV FLUSH SCH (07:53)
[2017-06-23 08:00] VITALS: BP 137/62; PULSE 80; PULSE 91; RESP 20; TEMP 98.2; O2SAT 98
[2017-06-23] MEDS: RESP: ALBUTEROL 2.5 MG/IPRATROPIUM 0.5 MG NEB (PRN) NEB (09:25)
--- NOTE | 2017-06-23 10:38 | HHI.PR ---
Subjective Remarks no sz's oob in recliner with next to her. Objective Vital Signs Date Time Temp Pulse Resp B/P (MAP) Pulse Ox O2 Delivery O2 Flow Rate FiO2 06/23/17 09:35 Nasal Cannula 2.00 06/23/17 08:00 98.2 80 20 137/62 (87) 98 06/23/17 00:00 98.3 88 18 116/57 (76) 94 06/22/17 20:25 98 Nasal Cannula 2.00 06/22/17 20:00 98.9 80 20 136/63 (87) 95 06/22/17 16:00 98.0 79 20 136/53 (80) 99 06/22/17 12:41 99 Nasal Cannula 2.00 06/22/17 12:00 97.1 78 20 119/57 (77) 99 06/22/17 12:00 86 I/O 06/22/17 06/22/17 06/22/17 06/23/17 06/23/17 06/23/17 07:00 15:00 23:00 07:00 15:00 23:00 Intake Total 120 ml 600 ml 1000 ml Balance 120 ml 600 ml 1000 ml Intake Oral 120 ml 600 ml IV Total 1000 ml # Voids 2 2 # Bowel Movements 0 Result Diagram: 06/22/17 02006/22/17 020 Other Results eeg some abnl right side c/w spikes no active seizures. Objective Remarks awake alert minimally verbal-baseline mild left sided weakness seems at baseline. Assessment and Plan Assessment and Plan hx sz hx aneurysm/shunt -cont keppra at 750mg bid-do not decrease dose. -Pt to assess if no change from baseline can go home with spouse. =f/u Dr Bautista in 2 weeks Itzel Bahena MD Jun 23, 2017 10:38
--- NOTE | 2017-06-23 10:50 | HHI.PR ---
Objective Vitals Vital Signs Date Time Temp Pulse Resp B/P (MAP) Pulse Ox O2 Delivery O2 Flow Rate FiO2 06/23/17 09:35 Nasal Cannula 2.00 06/23/17 08:00 98.2 80 20 137/62 (87) 98 06/23/17 00:00 98.3 88 18 116/57 (76) 94 06/22/17 20:25 98 Nasal Cannula 2.00 06/22/17 20:00 98.9 80 20 136/63 (87) 95 06/22/17 16:00 98.0 79 20 136/53 (80) 99 06/22/17 12:41 99 Nasal Cannula 2.00 06/22/17 12:00 97.1 78 20 119/57 (77) 99 06/22/17 12:00 86 I/O 06/22/17 06/22/17 06/22/17 06/23/17 06/23/17 06/23/17 07:00 15:00 23:00 07:00 15:00 23:00 Intake Total 120 ml 600 ml 1000 ml Balance 120 ml 600 ml 1000 ml Intake Oral 120 ml 600 ml IV Total 1000 ml # Voids 2 2 # Bowel Movements 0 Result Diagram: 06/22/1720306/22/17203 Martin Hess DO Jun 23, 2017 10:49
[2017-06-23 12:00] VITALS: BP 122/58; PULSE 93; PULSE 95; RESP 20; TEMP 98.4; O2SAT 99
[2017-06-23] MEDS ORDERED: LEVE250 PO (14:22)
--- NOTE | 2017-06-23 14:24 | HHI.FF ---
Face to Face Verification Diagnosis: (1) SZ disorder Physical Therapy Order: Evaluate and Treat, Improve ambulation, Strength and gait training Home Health Nursing Order: Medical education Signs/symptoms of disease process Nursing assessment with vital signs I have seen patient Cindy Lyons on 06/23/17. My clinical findings support the need for the requested home health care services because: Ltd mobility - disease progression Deconditioned w/ increased weakness Limited ability to care for self Need for psychosocial assistance Impaired cognition/judgement High risk of falls Infection w/ risk of complications I certify that my clinical findings support that this patient is homebound because: Impaired cognitive ability/safety Unsteady gait/balance Unsafe to leave home unassisted Need for psychosocial assistance [id number] bed/chair Unable to use public transportation Martin Hess DO Jun 23, 2017 2:24 pm
--- NOTE | 2017-06-23 14:25 | HHI.DS ---
Discharge Summary Admission Date Jun 21, 2017 at 4:58 pm Discharge Date: Jun 23, 2017 Admitting Diagnosis Seizure activity. (1) SZ disorder Procedures EEG Abnormal EEG due to some spike waves and sharps over the right hemisphere concerning for epileptic potential with the patient. She was on Keppra at that time 500 milligrams twice a day but the dosage was increased to 750 twice a day. Clinical correlation. Brief History - From Admission This is a pleasant 71 y/o Female with Cerebral aneurysm history, Status post CSF shunt placed by Doctor Talamantes who came to ER with episode of disorientation, according to patient's , brought in by EMS, and EMS noted that she had a facial asymmetry and called a stroke alert. Patient's son arrives in the ER and states the patient has had some facial asymmetry in the past at times, and has been having episodes of intermittent disorientation for several days. Patient currently denies any chest pains, trouble breathing, headaches, or other issues. However, her baseline is that she has some slurred speech, facial asymmetry, and can be disoriented intermittently. She apparently had a UTI recently and has been treated for it with antibiotics. Seen in the presence of her he states she is not able to walk by her self for the last 8 years and is at maximum assist at home, is having recurrent episodes of disorientation, this was discussed with Neurology specialist Doctor Fercho who will see the patient tomorrow. CBC/BMP: 06/22/17 0204 06/22/17 0204 Significant Findings Laboratory Tests Test 06/21/17 14:10 06/21/17 15:40 06/21/17 21:40 06/22/17 02:04 White Blood Count 11.9 TH/MM3 (4.0-11.0) Red Blood Count 3.29 MIL/MM3 (4.00-5.30) 2.91 MIL/MM3 (4.00-5.30) Hemoglobin 8.8 GM/DL (11.6-15.3) 7.7 GM/DL (11.6-15.3) Bedside Hemoglobin 8.8 G/DL (11.6-15.3) Hematocrit 25.8 % (35.0-46.0) 22.8 % (35.0-46.0) Bedside Hematocrit 26.0 % (35.0-46.0) Mean Corpuscular Volume 78.4 FL (80.0-100.0) 78.3 FL (80.0-100.0) Mean Corpuscular Hemoglobin 26.8 PG (27.0-34.0) 26.4 PG (27.0-34.0) Neutrophils (%) (Auto) 75.9 % (16.0-70.0) 74.6 % (16.0-70.0) Eosinophils (%) (Auto) 5.3 % (0.0-4.0) 7.2 % (0.0-4.0) Neutrophils # (Auto) 9.0 TH/MM3 (1.8-7.7) Eosinophils # (Auto) 0.6 TH/MM3 (0-0.4) 0.6 TH/MM3 (0-0.4) Fibrinogen GREATER THAN 860 mg/dL Bedside Chloride 101 MMOL/L (102-111) Bedside Blood Urea Nitrogen 22 MG/DL (5-21) Troponin I LESS THAN 0.02 NG/ML LESS THAN 0.02 NG/ML LESS THAN 0.02 NG/ML Urine Specific [place] GREATER THAN 1.050 Urine Protein 30 mg/dL (NEG-TRACE) Urine Occult Blood SMALL (NEG) Urine RBC 7 /hpf (0-3) Urine Mucus FEW /lpf (OCC) Total Creatine Kinase 19 U/L (26-192) 18 U/L (26-192) Lymphocytes # (Auto) 0.9 TH/MM3 (1.0-4.8) Blood Urea Nitrogen 20 MG/DL (7-18) Random Glucose 131 MG/DL (74-106) Calcium Level 8.1 MG/DL (8.5-10.1) Estimat Glomerular Filtration Rate 88 ML/MIN (>89) Imaging Last Impressions Neck CTA 06/21/[id number] Signed Impressions: Service Date/Time: Wednesday, June 21, 2017 14:17 - CONCLUSION: Mild bilateral carotid bifurcation stenosis. Kvng Mackenzie MD Head CTA 06/21/17 1416 Signed Impressions: Service Date/Time: Wednesday, June 21, 2017 14:17 - CONCLUSION: No acute intracranial vascular findings. Kvng Mackenzie MD Head CT 06/21/17 0000 Signed Impressions: Service Date/Time: Wednesday, June 21, 2017 14:17 - CONCLUSION: Aneurysm clipping, negative for parenchymal hemorrhage. Brandt Carrera MD FACR Chest X-Ray 06/21/17 0000 Signed Impressions: Service Date/Time: Wednesday, June 21, 2017 14:47 - CONCLUSION: No acute cardiopulmonary disease. Garcia Horner MD PE at Discharge GENERAL: Obese patient at this time alert and oriented. CARDIOVASCULAR: Regular rate and rhythm. No murmur appreciated. RESPIRATORY: No accessory muscle use. Clear to auscultation. Breath sounds equal bilaterally. GASTROINTESTINAL: Abdomen soft, non-tender, nondistended. Hepatic and splenic margins not palpable. MUSCULOSKELETAL: No obvious deformities. No clubbing. No cyanosis. No edema. NEUROLOGICAL: Awake and alert. Mild facial asymmetry no pronator drift.. Motor grossly within normal limits. Normal speech. Following commands. PSYCHIATRIC: Appropriate mood and affect; insight and judgment normal. Pt update on day of discharge Patient is currently doing well. No further seizure activity. PT evaluated patient and recommended home health PT. Hospital Course This is a pleasant 71 y/o Female with Cerebral aneurysm history, Status post CSF shunt placed by Doctor Albin who came to ER with episode of disorientation, according to patient's , brought in by EMS, and EMS noted that she had a facial asymmetry and called a stroke alert. Neurology evaluated patient. Per neurology, Keppra was changed to 750mg BID. Patient was back to baseline. PT evaluated her on the day of admission and recommended home with home health PT. At her baseline, patient does not ambulate much. Patient's family did not want to consider rehab either. Subsequently, patient was discharged home with home health and a close follow up with her neurologist Dr. Bautista. Patient was advised to take Keppra 750mg BID. However, stated that she was doing well on 500mg in the AM and 1000mg in the PM. I advised that if he wants to change the dosing, he should clarify by calling Dr. Bautista's office. Patient's verbalized understanding. Patient does not and should not drive or operate any heavy machinery. Pt Condition on Discharge: Good Discharge Disposition: Disch w/ Home Health Serv Discharge Time: <= 30 minutes Discharge Instructions DIET: Follow Instructions for: Heart Healthy Diet Activities you can perform: Regular-No Restrictions Follow up Referrals: Neurology - 1 Week with Himanshu Bautista MD PhD New Medications: Levetiracetam (Keppra) 250 Mg Tab 750 MG PO BID for Seizure Control, #60 TAB 2 Refills Continued Medications: Aspirin (Aspirin) 81 Mg Chew 81 MG CHEW DAILY, TAB 0 Refills Budesonide-Formoterol Inh (Symbicort Inh) 80-4.5 Mcg/Act Aero 1 PUFF INH Q12HR for Asthma Management, #1 INHALER 0 Refills Diphenhydramine HCl (Benadryl Allergy) 25 Mg Cap 25 TAB PO BID Multiple Vitamins W/ Minerals (Centrum) 1 Chew 1 TAB PO DAILY for Nutritional Supplement, TAB 0 Refills Sertraline (Zoloft) 50 Mg Tab 50 MG PO DAILY, #30 TAB 0 Refills Discontinued Medications: Levetiracetam (Keppra) 500 Mg Tab 500 MG PO BID for Control Seizures, #60 TAB 0 Refills Martin Hess DO Jun 23, 2017 14:25
== END 2017-06-23 15:56 | disposition home health service (06) | DRG 101 ==
LOC: NEPE 14:06 → NEDA 16:57 → OBSVTOIN 16:57 → NEDA 16:58 → UNDOADMOB 16:58 → NEDA 19:40 → N05B 19:40 → UNDODISOB 06-23 15:56
PROVIDERS: ADMIT Hospitalist; ATTEND Hospitalist
DX: G40.909 Epilepsy, unspecified, not intractable, without status epilepticus (principal); I67.1 Cerebral aneurysm, nonruptured; Z68.41 Body mass index [BMI] 40.0-44.9, adult; F32.9 Major depressive disorder, single episode, unspecified; K21.9 Gastro-esophageal reflux disease without esophagitis; Z98.2 Presence of cerebrospinal fluid drainage device; R53.1 Weakness; R47.81 Slurred speech; R26.2 Difficulty in walking, not elsewhere classified; E66.9 Obesity, unspecified; Z85.118 Personal history of other malignant neoplasm of bronchus and lung; Z86.73 Personal history of transient ischemic attack (TIA), and cerebral infarction without residual deficits; Z96.1 Presence of intraocular lens; Z98.41 Cataract extraction status, right eye; Z98.42 Cataract extraction status, left eye; Z92.3 Personal history of irradiation; Z87.891 Personal history of nicotine dependence
CPT/HCPCS: 70450; 70496; 70498; 71045; 80048; 80307; 81001; 82550; 84484; 85025; 85384; 85610; 85730; 86850; 86900; 86901; 93005; 94640; 94664; 95819; 96360; 96361; G8987-GO; G8988-GO; J1650; J7030; P9612; Q9967